=== PATIENT | female | born 1995 | race Caucasian/White ===

== ENCOUNTER 2017-01-13 20:46 | Emergency (ER) | payer OTHER ==
[~2017-01-13] VITALS: Ht 170.2 cm; Wt 99.0 kg
[~2017-01-13 20:46] MED LIST: LAMI25TA3 PO; LURA20TA PO; Z.0.BCPILL PO; ZOFR4TAB3 SL
[2017-01-13 20:48] VITALS: BP 139/76; PULSE 86; RESP 16; TEMP 97.9; O2SAT 99
[2017-01-13] MEDS ORDERED: PROM25TA10 PO (23:58)
[2017-01-13] MEDS ORDERED: ZITHTAB PO (23:58)
--- NOTE | 2017-01-13 23:58 | PD ---
HPI Chief Complaint: Cold / Flu Symptoms Time Seen by Provider: 23:46 Travel History International Travel<30 days: No Contact w/Intl Traveler<30days: No Traveled to known affect area: No History of Present Illness HPI 31-year-old female complains of sore throat, nasal congestion, dry cough, abdominal cramping, nausea vomiting diarrhea. Patient states the symptoms started today. Patient states that she is about 7 weeks' . Patient denies severe abdominal pain or vaginal bleeding. Patient denies any dysuria or frequency. Patient states that she has low-grade fever at home. PFSH Past Medical History ADHD: Yes Asthma: Yes (EXERCISE INDUCED) Bipolar Disorder: Yes Anxiety: Yes Diabetes: No Diminished Hearing: No Genitourinary: Yes (HERPES) Musculoskeletal: Yes (SKULL FX AND WRIST FX) Immunizations Current: Yes Seizures: Yes (FEBRILE SEIZURES INFANT) ?: LMP: 7-8 weeks ago : 0 Para: 0 Past Surgical History Cholecystectomy: Yes Ear Surgery: Yes (TUBES TODDLER- AGE 17 MONTHS) Neurologic Surgery: Yes (DEPRESSED SKULL FRACTURE AT AGE 1) Other Surgery: Yes (TUBES IN EARS AGE 17 MONTHS, SURG SKULL FX AGE 1, FX WRIST AGE 1) Social History Alcohol Use: Yes (occassionally ) Tobacco Use: No (never) Substance Use: No Allergies-Medications (Allergen,Severity, Reaction): Coded Allergies: Amoxicillin (Verified Allergy, Intermediate, HIVES, 01/13/17) Reported Meds & Prescriptions Reported Meds & Active Scripts Active No Active Prescriptions or Reported Medications Review of Systems General / Constitutional: No: Fever Eyes: No: Visual changes HENT: Positive: Sore Throat, No: Headaches Cardiovascular: No: Chest Pain or Discomfort Respiratory: Positive: Cough, No: Shortness of Breath Gastrointestinal: Positive: Nausea, Vomiting, Diarrhea, Abdominal Pain Genitourinary: No: Dysuria Musculoskeletal: No: Pain Skin: No Rash Neurologic: No: Weakness Psychiatric: No: Depression Endocrine: No: Polydipsia Hematologic/Lymphatic: No: Easy Bruising Physical Exam Narrative GENERAL: Well-nourished, well-developed patient. SKIN: Focused skin assessment warm/dry. HEAD: Normocephalic. EYES: No scleral icterus. No injection or drainage. TM: Clear. Throat: Mild erythematous. NECK: Supple, trachea midline. No JVD or lymphadenopathy. No meningismus CARDIOVASCULAR: Regular rate and rhythm without murmurs, gallops, or rubs. RESPIRATORY: Breath sounds equal bilaterally. No accessory muscle use. GASTROINTESTINAL: Abdomen soft, nondistended. Patient has mild diffuse tenderness over the upper abdomen. No rebound tenderness. No mass. MUSCULOSKELETAL: No cyanosis, or edema. BACK: Nontender without obvious deformity. No CVA tenderness. Data Data Last Documented VS Vital Signs Date Time Temp Pulse Resp B/P Pulse Ox O2 Delivery O2 Flow Rate FiO2 01/13/17 20:48 97.9 86 16 139/76 99 Room Air MDM Medical Decision Making Medical Screen Exam Complete: Yes Emergency Medical Condition: Yes Differential Diagnosis Differential diagnosis including viral syndrome, URI, pharyngitis, bronchitis, pneumonia, gastroenteritis, electrolyte abnormality. Narrative Course 21-year-old female with sore throat, congestion, coughing, fever, nausea vomiting diarrhea. Patient is 7 weeks . Diagnosis Primary Impression: Pharyngitis Qualified Code: J02.9 - Pharyngitis, unspecified etiology Additional Impression: Viral syndrome Patient Instructions: General Instructions Med/Other Pt SpecificInfo: Prescription(s) given Scripts Promethazine (Phenergan)25 Mg [id number] Mg PO Q6H PRN (NAUSEA OR VOMITING) #12 TAB Ref 0 Prov:Dougie Yuen MD 01/13/17 Azithromycin (Zithromax Z-Bucth)250 Mg [id number] Mg PO DIRECTED #1 DSPK 500 MG (2 tabs) day 1, then 1 tab days 2-5. Prov:Dougie Yuen MD 01/13/17 Disposition: 01 DISCHARGE HOME Condition: Stable Dougie Yuen MD Jan 13, 2017 23:58
== END 2017-01-14 00:50 | disposition home or self-care (01) ==
LOC: NEPC 20:46
DX: O99.511 Diseases of the respiratory system complicating pregnancy, first trimester (principal); J02.9 Acute pharyngitis, unspecified; O98.511 Other viral diseases complicating pregnancy, first trimester; B34.9 Viral infection, unspecified; Z3A.01 Less than 8 weeks gestation of pregnancy
CPT/HCPCS: 99284

== ENCOUNTER 2017-01-21 15:42 | Emergency (ER) | payer OTHER ==
[~2017-01-21] VITALS: Ht 162.6 cm; Wt 89.0 kg
[~2017-01-21 15:42] MED LIST changes: -LAMI25TA3 PO; -LURA20TA PO; +PROM25TA10 PO; -Z.0.BCPILL PO; +ZITHTAB PO; -ZOFR4TAB3 SL
[2017-01-21 15:43] VITALS: BP 118/74; PULSE 80; RESP 20; TEMP 98; O2SAT 97
--- NOTE | 2017-01-21 15:51 | PD ---
Physical Exam Date Seen by Provider: Jan 21, 2017 Time Seen by Provider: 15:50 Narrative 21 yo female here for abdominal pain. Vaginal bleeding. Going on for a few weeks but worsen today. History of high risk . No other medical complains. She is . Vitals are stable in triage. Awaiting Bed placement. Data Data Last Documented VS Vital Signs Date Time Temp Pulse Resp B/P Pulse Ox O2 Delivery O2 Flow Rate FiO2 01/21/17 15:43 98.0 80 20 118/74 97 Room Air [facility] Medical Record Reviewed: Yes Supervised Visit with MATA: Jay Satnos Jan 21, 2017 15:51
--- NOTE | 2017-01-21 18:12 | PD ---
HPI Chief Complaint: Related Problem Time Seen by Provider: 18:07 Travel History International Travel<30 days: No Contact w/Intl Traveler<30days: No Traveled to known affect area: No History of Present Illness HPI PATIENT HAS HAD 2 DAYS OF SUPRAPUBIC CRAMPY, NO VAGINAL BLEEDING, FREQUENCY AND DYSURIA, CRAMPING IS 4/10 AND WORSE AFTER VOIDING... NO ALLEVIATING FACTORS, AND NO OTHER ASSOCIATED FACTORS...OB IS [facility] Past Medical History ADHD: Yes Asthma: Yes (EXERCISE INDUCED) Bipolar Disorder: Yes Anxiety: Yes Diabetes: No Diminished Hearing: No Genitourinary: Yes (HERPES) Musculoskeletal: Yes (SKULL FX AND WRIST FX) Immunizations Current: Yes Seizures: Yes (FEBRILE SEIZURES INFANT) ?: LMP: 11/27/16 : 0 Para: 0 Past Surgical History Cholecystectomy: Yes Ear Surgery: Yes (TUBES TODDLER- AGE 17 MONTHS) Neurologic Surgery: Yes (DEPRESSED SKULL FRACTURE AT AGE 1) Other Surgery: Yes (TUBES IN EARS AGE 18 MONTHS, SURG SKULL FX AGE 1, FX WRIST AGE 1) Social History Alcohol Use: Yes (occassionally ) Tobacco Use: No (never) Substance Use: No Allergies-Medications (Allergen,Severity, Reaction): Coded Allergies: Amoxicillin (Verified Allergy, Intermediate, HIVES, 01/21/17) Reported Meds & Prescriptions Reported Meds & Active Scripts Active Zofran Odt (Ondansetron Odt) 4 Mg Tab 4 Mg SL Q6HR PRN Macrobid (Nitrofurantoin Monohydrate Macrocrystals) 100 Mg Capsule 100 Mg PO BID Phenergan (Promethazine HCl) 25 Mg Tablet 25 Mg PO Q6H PRN Zithromax Z-Butch (Azithromycin) 250 Mg Dspk 250 Mg PO DIRECTED 500 MG (2 tabs) day 1, then 1 tab days 2-5. Review of Systems Except as stated in HPI: all other systems reviewed are Neg Gastrointestinal: Positive: Abdominal Pain Genitourinary: Positive: Urgency, Frequency, Dysuria Physical Exam Narrative GENERAL: SKIN: Warm and dry. HEAD: Atraumatic. Normocephalic. EYES: Pupils equal and round. No scleral icterus. No injection or drainage. ENT: No nasal bleeding or discharge. Mucous membranes pink and moist. NECK: Trachea midline. No JVD. CARDIOVASCULAR: Regular rate and rhythm. RESPIRATORY: No accessory muscle use. Clear to auscultation. Breath sounds equal bilaterally. GASTROINTESTINAL: Abdomen soft, non-tender, nondistended. MUSCULOSKELETAL: Extremities without clubbing, cyanosis, or edema. No obvious deformities. NEUROLOGICAL: Awake and alert. No obvious cranial nerve deficits. Motor grossly within normal limits. Five out of 5 muscle strength in the arms and legs. Normal speech. PSYCHIATRIC: Appropriate mood and affect; insight and judgment normal. Data Data Last Documented VS Vital Signs Date Time Temp Pulse Resp B/P Pulse Ox O2 Delivery O2 Flow Rate FiO2 01/21/17 20:52 86 18 129/78 100 Room Air 01/21/17 15:43 98.0 Orders Urinalysis - C+S If Indicated (01/21/17 18:08) Ed Urine Pregnancytest Poc (01/21/17 18:08) Urine Culture (01/21/17 18:40) Nitrofurantoin Monohyd Macrocr (Macrobid (01/21/17 19:15) Labs Laboratory Tests Test 01/21/17 18:40 Urine Color YELLOW Urine Turbidity HAZY Urine pH 5.5 Urine Specific [place] 1.034 Urine Protein 30 mg/dL Urine Glucose (UA) NEG mg/dL Urine Ketones 40 mg/dL Urine Occult Blood NEG Urine Nitrite NEG Urine Bilirubin NEG Urine Urobilinogen LESS THAN 2.0 MG/DL Urine Leukocyte Esterase LARGE Urine RBC 53 /hpf Urine WBC 124 /hpf Urine Squamous Epithelial 3 /hpf Cells Urine Amorphous Sediment RARE Urine Bacteria RARE /hpf Urine Mucus FEW /lpf Microscopic Urinalysis Comment CULTURE INDICATED MDM Medical Decision Making Medical Screen Exam Complete: Yes Emergency Medical Condition: Yes Medical Record Reviewed: Yes Differential Diagnosis UTI V COLITIS V STERILE PYURIA Narrative Course PATIENT EVALUATION REVEALED UA C/W UTI, (INCIDENTALLY NO DIARRHEA OR OTHER SIGNS OF COLITIS NOTED ON EXAM/HISTORY). PATIENT WILL BE D/C WITH ABX Diagnosis Primary Impression: UTI Patient Instructions: General Instructions, Urinary Tract Infection in Women ( ED) Scripts Ondansetron Odt (Zofran Odt)4 Mg Tab4 Mg SL Q6HR PRN (Nausea/Vomiting) #12 TAB Prov:Balaji Son MD 01/21/17 Nitrofurantoin Monohydrate Macrocrystals (Macrobid)100 Mg [id number] Mg PO BID #14 CAP Prov:Balaji Son MD 01/21/17 Disposition: 01 DISCHARGE HOME Condition: Stable Balaji Son MD Jan 21, 2017 18:12
[2017-01-21 18:58] LABS: BACTERIA, URINE RARE /hpf; BLOOD, URINE NEG (NEG); COMMENT (UR) CULTURE INDICATED; CULTURE IF INDICATED CULTURE INDICATED; GLUCOSE,URINE NEG (NEG); KETONE, URINE 40 mg/dL (NEG); MUCUS URINE FEW /lpf (OCC); NITRITE,URINE NEG (NEG); PH, URINE 5.5 (5.0-8.5); SQUAMOUS EPITHELIAL CELL URINE 3 /hpf (0-5); URINE COLOR YELLOW (YELLW/STRAW)
[2017-01-21] MEDS ORDERED: NITROFURANTOIN MONOHYD MACROCR 100 MG CAP PO ONE (19:15)
[2017-01-21 20:52] VITALS: BP 129/78; PULSE 86; RESP 18; O2SAT 100
[2017-01-21] MEDS ORDERED: ZOFR4TAB3 SL (21:29)
[2017-01-21] MEDS ORDERED: MACR100C2 PO (21:29)
[2017-03-02] MEDS ORDERED: CLAR10CA3 PO (16:16)
[2017-04-02] MEDS ORDERED: MACR100C2 PO ×2 (11:18→11:32)
[2017-04-02] MEDS ORDERED: DIFL150T PO ×2 (11:18→11:32)
[2017-04-02] MEDS ORDERED: DOXY10TA PO ×2 (11:18→11:32)
[2017-04-02] MEDS ORDERED: INFL1INJ49 IM (11:22)
== END 2017-01-21 21:38 | disposition home or self-care (01) ==
LOC: NEPD 15:42
DX: O23.40 Unspecified infection of urinary tract in pregnancy, unspecified trimester (principal); N39.0 Urinary tract infection, site not specified; Z3A.00 Weeks of gestation of pregnancy not specified
CPT/HCPCS: 81001; 84703; 87086; 99284

== ENCOUNTER → 2017-03-05 | Outpatient (CLI) | payer OTHER ==
[~2017-03-05] MED LIST changes: +CLAR10CA3 PO; +DIFL150T PO; +DOXY10TA PO; +INFL1INJ49 IM; +MACR100C2 PO; -ZITHTAB PO
== END ==
LOC: HPND 07:58
PROVIDERS: ATTEND Family Medicine
DX: Z36 Encounter for antenatal screening of mother (principal)
CPT/HCPCS: 76801

== ENCOUNTER → 2017-04-09 | Outpatient (CLI) | payer OTHER ==
[~2017-04-09] MED LIST changes: -INFL1INJ49 IM; -PROM25TA10 PO
== END ==
LOC: HPND 12:28
PROVIDERS: ATTEND Family Medicine
DX: Z36.9 Encounter for antenatal screening, unspecified (principal)
CPT/HCPCS: 76805

== ENCOUNTER 2017-05-04 13:58 | Emergency (ER) | payer OTHER ==
[~2017-05-04] VITALS: Ht 162.6 cm; Wt 90.0 kg
[2017-05-04 14:01] VITALS: BP 118/69; PULSE 118; RESP 17; TEMP 98.9; O2SAT 100
[2017-05-04] MEDS ORDERED: SODIUM CHLOR 0.9% 1000 ML INJ 1,000 ML IV ONE (14:46)
--- NOTE | 2017-05-04 14:53 | PD ---
HPI Chief Complaint: Cardiac Complaint Time Seen by Provider: 14:22 Travel History International Travel<30 days: No Contact w/Intl Traveler<30days: No Traveled to known affect area: No History of Present Illness HPI 21-year-old female who is [address] weeks [address] Flora Breen as her OB. Patient presents with generalized weakness, feelings of tachycardia, and nausea. She is felt the baby moving frequently and denies any significant abdominal pain, fever, chills, or urinary symptoms. She was seen recently for this at [facility], and was hospitalized for several days and then discharged. Patient states he was home for several days and then started feeling this way again. She was told to come in by her OB. Patient is allergic to amoxicillin. [facility] Past Medical History ADHD: Yes Asthma: Yes (EXERCISE INDUCED) Bipolar Disorder: Yes Anxiety: Yes Cardiovascular Problems: Yes (TACHYCARDIA) Diabetes: No Diminished Hearing: No Genitourinary: Yes (HERPES) Musculoskeletal: Yes (SKULL FX AND WRIST FX) Immunizations Current: Yes Seizures: Yes (FEBRILE SEIZURES INFANT) Tetanus Vaccination: Unknown Influenza Vaccination: Yes ?: : 0 Para: 0 Past Surgical History Cholecystectomy: Yes Ear Surgery: Yes (TUBES TODDLER- AGE 18 MONTHS) Neurologic Surgery: Yes (DEPRESSED SKULL FRACTURE AT AGE 1) Other Surgery: Yes (TUBES IN EARS AGE 18 MONTHS, SURG SKULL FX AGE 1, FX WRIST AGE 1) Social History Alcohol Use: No Tobacco Use: No Substance Use: No Allergies-Medications (Allergen,Severity, Reaction): Coded Allergies: amoxicillin (Unverified Allergy, Intermediate, HIVES, 05/04/17) Reported Meds & Prescriptions Reported Meds & Active Scripts Active No Active Prescriptions or Reported Medications Review of Systems Except as stated in HPI: all other systems reviewed are Neg General / Constitutional: No: Fever Eyes: No: Visual changes HENT: No: Headaches Cardiovascular: No: Chest Pain or Discomfort Respiratory: No: Shortness of Breath Gastrointestinal: No: Abdominal Pain Genitourinary: No: Dysuria Musculoskeletal: No: Pain Skin: No Rash Neurologic: No: Weakness Psychiatric: No: Depression Endocrine: No: Polydipsia Hematologic/Lymphatic: No: Easy Bruising Physical Exam Narrative GENERAL: Patient appears in no obvious distress. SKIN: Warm and dry. Normal turgor. HEAD: Atraumatic. Normocephalic. EYES: Pupils equal and round. No scleral icterus. No injection or drainage. ENT: No nasal bleeding or discharge. Mucous membranes pink and moist. Pharynx is clear. Airway is patent. NECK: Trachea midline. Supple and nontender. CARDIOVASCULAR: Regular rate and rhythm. RESPIRATORY: No accessory muscle use. Clear to auscultation. Breath sounds equal bilaterally. GASTROINTESTINAL: Abdomen soft, non-tender, nondistended. Hepatic and splenic margins not palpable. MUSCULOSKELETAL: Extremities without clubbing, cyanosis, or edema. No obvious deformities. NEUROLOGICAL: Awake and alert. No obvious cranial nerve deficits. Motor grossly within normal limits. Five out of 5 muscle strength in the arms and legs. Normal speech. PSYCHIATRIC: Appropriate mood and affect; insight and judgment normal. Data Data Last Documented VS Vital Signs Date Time Temp Pulse Resp B/P (MAP) Pulse Ox O2 Delivery O2 Flow Rate FiO2 05/04/17 16:57 112 16 116/72 (87) 100 Room Air 05/04/17 14:01 98.9 Orders Orders Beta Hcg (Quant/Titer) (05/04/17 14:46) Complete Blood Count With Diff (05/04/17 14:46) Comprehensive Metabolic Panel (05/04/17 14:46) Urinalysis - C+S If Indicated (05/04/17 14:46) Iv Access Insert/Monitor (05/04/17 14:46) Ecg Monitoring (05/04/17 14:46) Heart Tones (05/04/17 14:46) Sodium Chloride 0.9% Flush (Ns Flush) (05/04/17 15:00) Sodium Chlor 0.9% 1000 Ml Inj (Ns 1000 M (05/04/17 14:46) Ondansetron Inj (Zofran Inj) (05/04/17 15:00) Electrocardiogram (05/04/17 ) Lipase (05/04/17 15:00) Monoscreen (05/04/17 16:38) Labs Laboratory Tests Test 05/04/17 15:00 05/04/17 16:45 White Blood Count 8.8 TH/MM3 Red Blood Count 4.07 MIL/MM3 Hemoglobin 11.5 GM/DL Hematocrit 34.0 % Mean Corpuscular Volume 83.5 FL Mean Corpuscular Hemoglobin 28.1 PG Mean Corpuscular Hemoglobin Concent 33.7 % Red Cell Distribution Width 13.7 % Platelet Count 146 TH/MM3 Mean Platelet Volume 9.3 FL Neutrophils (%) (Auto) 55.3 % Lymphocytes (%) (Auto) 34.6 % Monocytes (%) (Auto) 6.1 % Eosinophils (%) (Auto) 2.4 % Basophils (%) (Auto) 1.6 % Neutrophils # (Auto) 4.8 TH/MM3 Lymphocytes # (Auto) 3.0 TH/MM3 Monocytes # (Auto) 0.5 TH/MM3 Eosinophils # (Auto) 0.2 TH/MM3 Basophils # (Auto) 0.1 TH/MM3 CBC Comment DIFF FINAL Differential Comment Urine Color YELLOW Urine Turbidity CLEAR Urine pH 6.0 Urine Specific [place] 1.014 Urine Protein 30 mg/dL Urine Glucose (UA) NEG mg/dL Urine Ketones NEG mg/dL Urine Occult Blood NEG Urine Nitrite NEG Urine Bilirubin NEG Urine Urobilinogen LESS THAN 2.0 MG/DL Urine Leukocyte Esterase NEG Urine RBC 1 /hpf Urine WBC 3 /hpf Urine Squamous Epithelial Cells 5 /hpf Urine Bacteria RARE /hpf Urine Mucus FEW /lpf Blood Urea Nitrogen 7 MG/DL Creatinine 0.52 MG/DL Random Glucose 96 MG/DL Total Protein 6.3 GM/DL Albumin 2.3 GM/DL Calcium Level 8.2 MG/DL Alkaline Phosphatase 125 U/L Aspartate Amino Transf (AST/SGOT) 112 U/L Alanine Aminotransferase (ALT/SGPT) 147 U/L Total Bilirubin 0.3 MG/DL Sodium Level 135 MEQ/L Potassium Level 3.5 MEQ/L Chloride Level 105 MEQ/L Carbon Dioxide Level 20.6 MEQ/L Anion Gap 9 MEQ/L Estimat Glomerular Filtration Rate 147 ML/MIN Lipase 167 U/L Human Chorionic Gonadotropin, Quant [id number] MIU/ML Monoscreen NEG MDM Medical Decision Making Medical Screen Exam Complete: Yes Emergency Medical Condition: Yes Medical Record Reviewed: Yes Differential Diagnosis Electrolyte imbalance. Diabetes. Anemia. 22 weeks . Weakness. Narrative Course Patient is medically stable at time of exam. Labs ordered including CBC, CMP, urinalysis, serum hCG. IV access is obtained patient is given 1 L normal saline bolus. Patient also given 4 mg Zofran IV. EKG showed has tachycardia with short NC interval of 116 ms. CBC is unremarkable. Urinalysis shows 30 protein, otherwise negative. CMP shows sodium 135, potassium 3.5, chloride 105, carbon dioxide is 20.6. Calcium is 8.2. AST is 112, ALT is 147, alkaline phosphatase is 125. [place]ase [place] [id number]. Call was placed to the patient's high school foreign language tutor. Patient is further questioned regarding her previous illness, and she states she had a sore throat prior to admission at [facility]. Monospot was added to her labs. Monospot was negative. Patient discussed with Dr. Jenkins, the high school foreign language tutor business systems consultant, and labs and findings were reviewed. He felt the patient could be safely discharged home with instructions to push fluids and follow-up closely with her high school foreign language tutor later in the week. No need for antibiotics is noted at this time. Patient can return to emergency Department with worsening symptoms as needed. Diagnosis Primary Impression: Dehydration, mild Additional Impressions: Tachycardia, unspecified Referrals: Yuliana Breen MD R2 call for appointment Patient Instructions: Dehydration (ED), General Instructions Additional Instructions: Patient discussed with Dr. Jenkins, the high school foreign language tutor business systems consultant, and labs and findings were reviewed. He felt the patient could be safely discharged home with instructions to push fluids and follow-up closely with her high school foreign language tutor later in the week. No need for antibiotics is noted at this time. Patient can return to emergency Department with worsening symptoms as needed. Med/Other Pt SpecificInfo: No Meds Exist/No RX given Scripts No Active Prescriptions or Reported Meds Disposition: 01 DISCHARGE HOME Condition: Stable Marbin Jaramillo May 04, 2017 14:53
[2017-05-04] MEDS ORDERED: SODIUM CHLORIDE 0.9% FLUSH 10 ML FLUSH IVF PRN (15:00)
[2017-05-04] MEDS ORDERED: ONDANSETRON HCL 4 MG/2 ML VIAL IVP ONE (15:00)
[2017-05-04 15:34] LABS: AUTOMATED NEUTROPHIL # 4.8 TH/MM3 (1.8-7.7); BASOPHIL # 0.1 TH/MM3 (0-0.2); BASOPHIL % 1.6 % (0.0-2.0); EOSINOPHIL # 0.2 TH/MM3 (0-0.4); EOSINOPHIL % 2.4 % (0.0-4.0); HEMO FLAGS DIFF FINAL; LYMPH % 34.6 % (9.0-44.0); MEAN CELL VOLUME 83.5 FL (80.0-100.0); MEAN CORPUSCULAR HEMOGLOBIN 28.1 PG (27.0-34.0); MEAN CORPUSCULAR HGB CONC 33.7 % (32.0-36.0); MONO % 6.1 % (0.0-8.0); NEUT % 55.3 % (16.0-70.0); PLATELET COUNT 146 TH/MM3 (150-450); RED BLOOD COUNT 4.07 MIL/MM3 (4.00-5.30); RED CELL DISTRIBUTION WIDTH 13.7 % (11.6-17.2); WHITE BLOOD COUNT 8.8 TH/MM3 (4.0-11.0)
[2017-05-04 15:42] LABS: BACTERIA, URINE RARE /hpf; BLOOD, URINE NEG (NEG); GLUCOSE,URINE NEG (NEG); KETONE, URINE NEG (NEG); MUCUS URINE FEW /lpf (OCC); NITRITE,URINE NEG (NEG); SQUAMOUS EPITHELIAL CELL URINE 5 /hpf (0-5); URINE COLOR YELLOW (YELLW/STRAW)
[2017-05-04 15:43] LABS: CULTURE IF INDICATED CULT NOT INDICATED
[2017-05-04 16:15] LABS: ALKALINE PHOSPHATASE 125 U/L (45-117); ALT (GPT) 147 U/L (10-53); BETA HCG QUANT 12387 MIU/ML (0-5); TOTAL BILIRUBIN ADULT 0.3 MG/DL (0.2-1.0)
[2017-05-04 16:16] LABS: ANION GAP 9 MEQ/L (5-15); AST (GOT) 112 U/L (15-37); BICARBONATE 20.6 MEQ/L (21.0-32.0); BLOOD UREA NITROGEN 7 MG/DL (7-18); CHLORIDE 105 MEQ/L (98-107); GLOMERULAR FILTRATION RATE 147 ML/MIN (>89); POTASSIUM 3.5 MEQ/L (3.5-5.1); SODIUM (NA) 135 MEQ/L (136-145)
[2017-05-04 16:57] VITALS: BP 116/72; PULSE 112; RESP 16; O2SAT 100
--- NOTE | 2017-05-05 19:08 | EKG ---
Date Performed: 05/04/2017 Time Performed: 15:22:25 PTAGE: 21 years EKG: SINUS TACHYCARDIA WITH SHORT ND INTERVAL Since previous tracing, no significant change note d ABNORMAL RHYTHM ECG PREVIOUS TRACING : 09/11/2005 14.41 DOCTOR: Musa Kline Interpretating Date/Time 05/05/2017 19:08:05
== END 2017-05-04 19:51 | disposition home or self-care (01) ==
LOC: NEPD 13:58
DX: O26.892 Other specified pregnancy related conditions, second trimester (principal); E86.0 Dehydration; R00.0 Tachycardia, unspecified; R53.1 Weakness; R11.0 Nausea; R94.31 Abnormal electrocardiogram [ECG] [EKG]; Z3A.22 22 weeks gestation of pregnancy; Z34.92 Encounter for supervision of normal pregnancy, unspecified, second trimester
CPT/HCPCS: 80053; 81001; 83690; 84702; 85025; 86308; 93005; 96360; 99284; J7030

== ENCOUNTER → 2017-05-11 | Outpatient (CLI) | payer OTHER ==
[~2017-05-11] MED LIST changes: -CLAR10CA3 PO; -DIFL150T PO; -DOXY10TA PO; -MACR100C2 PO; +PRENATAL PO
== END ==
LOC: HPND 09:23
PROVIDERS: ATTEND Family Medicine
DX: O99.512 Diseases of the respiratory system complicating pregnancy, second trimester (principal)
CPT/HCPCS: 76816

== ENCOUNTER 2017-05-12 17:41 | Emergency (ER) | payer OTHER ==
[~2017-05-12] VITALS: Ht 162.6 cm; Wt 92.0 kg
[2017-05-12 17:43] VITALS: BP 127/71; PULSE 92; RESP 16; RESP 6; TEMP 98.8; O2SAT 100
[2017-05-12] MEDS ORDERED: PRENATAL PO (17:58)
[2017-05-12] MEDS ORDERED: SODIUM CHLORIDE 0.9% FLUSH 10 ML FLUSH IVF PRN (18:15)
--- NOTE | 2017-05-12 18:34 | PD ---
HPI Chief Complaint: Cardiac Complaint Time Seen by Provider: 17:57 Travel History International Travel<30 days: No Contact w/Intl Traveler<30days: No Traveled to known affect area: No History of Present Illness HPI 21-year-old 23 week gravid female with PMH of asthma presents to the ED for evaluation of a 3 week history of palpitations and tachycardia. On presentation the patient endorses chest pain that is present when lying on her left side and shortness of breath which she relates to her asthma. She denies fever, chills, nausea, vomiting, abdominal pain, vaginal bleeding, vaginal discharge. She states that her telephone maintainer, Dr. Flora Washington, told her that she should see a compilation clerk and wear a Holter monitor but she was never provided with a consult ordered. She saw a new primary care doctor today who noted the abnormal EKG and recommended that she come to the hospital for evaluation. She states that she was there to be evaluated for chronic itching. She endorses good movement, states that she saw the telephone maintainer last week and "everything was fine." PFSH Past Medical History ADHD: Yes Asthma: Yes (EXERCISE INDUCED) Bipolar Disorder: Yes Anxiety: Yes Cardiovascular Problems: Yes (TACHYCARDIA) Diabetes: No Diminished Hearing: No Genitourinary: Yes (HERPES) Musculoskeletal: Yes (SKULL FX AND WRIST FX) Respiratory: Yes (ASTHMA) Immunizations Current: Yes Seizures: Yes (FEBRILE SEIZURES ) Tetanus Vaccination: Unknown ?: : 0 Para: 0 Past Surgical History Cholecystectomy: Yes Ear Surgery: Yes (TUBES TODDLER- AGE 17 MONTHS) Neurologic Surgery: Yes (DEPRESSED SKULL FRACTURE AT AGE 1) Other Surgery: Yes (TUBES IN EARS AGE 18 MONTHS, SURG SKULL FX AGE 1, FX WRIST AGE 1) Social History Alcohol Use: No Tobacco Use: No Substance Use: No Allergies-Medications (Allergen,Severity, Reaction): Coded Allergies: amoxicillin (Unverified Allergy, Intermediate, HIVES, 05/12/17) Reported Meds & Prescriptions Reported Meds & Active Scripts Active Reported [ ] 1 Tab PO DAILY Review of Systems Except as stated in HPI: all other systems reviewed are Neg Physical Exam Narrative GENERAL: Well-nourished, well-developed anxious-appearing white female in no acute distress. SKIN: Focused skin assessment warm/dry. Multiple macules and papules. No evidence of contact dermatitis or excoriations noted. HEAD: Normocephalic. EYES: No scleral icterus. No injection or drainage. NECK: Supple, trachea midline. No JVD or lymphadenopathy. CARDIOVASCULAR: Irregular rate and rhythm without murmurs, gallops, or rubs. RESPIRATORY: Breath sounds clear and equal bilaterally. No accessory muscle use. GASTROINTESTINAL: Abdomen soft, non-tender, nondistended. Active bowel sounds. MUSCULOSKELETAL: No cyanosis, or edema. BACK: Nontender without obvious deformity. No CVA tenderness. Data Data Last Documented VS Vital Signs Date Time Temp Pulse Resp B/P (MAP) Pulse Ox O2 Delivery O2 Flow Rate FiO2 05/12/17 21:36 126 18 117/52 (73) 98 05/12/17 19:40 Room Air 05/12/17 17:43 98.8 Orders Orders Electrocardiogram (05/12/17 18:05) Ckmb (Isoenzyme) Profile (05/12/17 18:05) Complete Blood Count With Diff (05/12/17 18:05) Comprehensive Metabolic Panel (05/12/17 18:05) Magnesium (Mg) (05/12/17 18:05) Prothrombin Time / Inr (Pt) (05/12/17 18:05) Act Partial Throm Time (Ptt) (05/12/17 18:05) Troponin I (05/12/17 18:05) Ecg Monitoring (05/12/17 18:05) Bilateral Bp Monitoring (05/12/17 18:05) Iv Access Insert/Monitor (05/12/17 18:05) Oximetry (05/12/17 18:05) Sodium Chloride 0.9% Flush (Ns Flush) (05/12/17 18:15) Thyroid Stimulating Hormone (05/12/17 18:05) Potassium Chloride (Kcl) (05/12/17 20:30) Calcium Carbonate Chew (Tums Chew) (05/12/17 20:30) Ed Discharge Order (05/12/17 21:02) Labs Laboratory Tests Test 05/12/17 19:30 White Blood Count 11.8 TH/MM3 Red Blood Count 4.25 MIL/MM3 Hemoglobin 11.9 GM/DL Hematocrit 35.3 % Mean Corpuscular Volume 83.1 FL Mean Corpuscular Hemoglobin 28.0 PG Mean Corpuscular Hemoglobin Concent 33.7 % Red Cell Distribution Width 14.2 % Platelet Count 184 TH/MM3 Mean Platelet Volume 8.9 FL Neutrophils (%) (Auto) 38.6 % Lymphocytes (%) (Auto) 53.9 % Monocytes (%) (Auto) 6.0 % Eosinophils (%) (Auto) 1.1 % Basophils (%) (Auto) 0.4 % Neutrophils # (Auto) 4.5 TH/MM3 Lymphocytes # (Auto) 6.3 TH/MM3 Monocytes # (Auto) 0.7 TH/MM3 Eosinophils # (Auto) 0.1 TH/MM3 Basophils # (Auto) 0.0 TH/MM3 CBC Comment AUTO DIFF Differential Total Cells Counted 100 Neutrophils % (Manual) 45 % Band Neutrophils % 17 % Lymphocytes % 26 % Monocytes % 8 % Eosinophils % 3 % Neutrophils # (Manual) 7.4 TH/MM3 Metamyelocytes 1 % Differential Comment FINAL DIFF MANUAL Atypical Lymphocytes % Platelet Estimate NORMAL Platelet Morphology Comment NORMAL Prothrombin Time 10.5 SEC Prothromb Time International Ratio 1.0 RATIO Activated Partial Thromboplast Time 25.2 SEC Blood Urea Nitrogen 5 MG/DL Creatinine 0.67 MG/DL Random Glucose 68 MG/DL Total Protein 6.9 GM/DL Albumin 2.4 GM/DL Calcium Level 8.0 MG/DL Magnesium Level 1.4 MG/DL Alkaline Phosphatase 151 U/L Aspartate Amino Transf (AST/SGOT) 62 U/L Alanine Aminotransferase (ALT/SGPT) 71 U/L Total Bilirubin 0.5 MG/DL Sodium Level 136 MEQ/L Potassium Level 3.2 MEQ/L Chloride Level 103 MEQ/L Carbon Dioxide Level 21.8 MEQ/L Anion Gap 11 MEQ/L Estimat Glomerular Filtration Rate 110 ML/MIN Total Creatine Kinase 41 U/L Troponin I LESS THAN 0.02 NG/ML Thyroid Stimulating Hormone 3rd Gen 1.700 uIU/ML MDM Medical Decision Making Medical Screen Exam Complete: Yes Emergency Medical Condition: Yes Differential Diagnosis Arrhythmia versus dehydration versus electrolyte abnormality versus hyperthyroidism versus other Narrative Course 21-year-old 23 week gravid female with PMH of asthma presents to the ED for evaluation of a 3 week history of palpitations and tachycardia. On presentation the patient endorses chest pain that is present when lying on her left side and shortness of breath which she relates to her asthma. She states that her telephone maintainer, Dr. Flora Washington, told her that she should see a compilation clerk and wear a Holter monitor but she was never provided with a consult ordered. She saw a new primary care doctor today who noted the abnormal EKG and recommended that she come to the hospital for evaluation. She endorses good movement, states that she saw the telephone maintainer last week and "everything was fine." Vitals reviewed. Patient's tachycardic on presentation. O2 sats 100% on room air. Chest CTAB. Abdomen soft and nontender. EKG rate 120, sinus tach with PVCs. UT interval 116, QRS 95, QTc 385. Normal axis. No acute ST changes. Reviewed by Dr. Kline. Cardiac enzymes negative 1. CBC: WBC 11.8. Hemoglobin 11.9. INR 1.0. CMP: Potassium 3.2. BUN 5, creatinine 0.6. Calcium 8.0. LFTs elevated but improved from previous visit. TSH 1.7 We called the OB ED. They recommend recording heart tones but don't think she needs to be evaluated there. heart rate 155 on evaluation. I discussed the results of the workup with the patient. I explained to her the etiology of PVCs. She was provided a prescription for 24 Holter monitoring and a referral to the fire protection engineering technician compilation clerk, Dr. Christensen. She understands that she may need to be provided a referral from her telephone maintainer. We discussed reasons to return to the ED. She is stable and discharged home. Diagnosis Primary Impression: Tachycardia Additional Impression: Abnormal finding on EKG Referrals: Antione Christensen MD Patient Instructions: General Instructions, Tachycardia (ED) Additional Instructions: Rest, hydrate. Follow-up with the compilation clerk as discussed. You may need a referral from your telephone maintainer to follow up with cardiology. Return to the ED for any urgent or emergent medical condition. Disposition: 01 DISCHARGE HOME Condition: Stable Priti Plaza May 12, 2017 18:34
[2017-05-12 19:38] VITALS: BP 118/64; PULSE 127; RESP 20; O2SAT 100
[2017-05-12 19:40] VITALS: BP 115/60; PULSE 126; RESP 20; O2SAT 100
[2017-05-12 19:54] LABS: AUTOMATED NEUTROPHIL # 4.5 TH/MM3 (1.8-7.7); BASOPHIL % 0.4 % (0.0-2.0); EOSINOPHIL # 0.1 TH/MM3 (0-0.4); EOSINOPHIL % 1.1 % (0.0-4.0); HEMATOCRIT 35.3 % (35.0-46.0); LYMPH % 53.9 % (9.0-44.0); LYMPHOCYTE # 6.3 TH/MM3 (1.0-4.8); MEAN CELL VOLUME 83.1 FL (80.0-100.0); MEAN CORPUSCULAR HGB CONC 33.7 % (32.0-36.0); NEUT % 38.6 % (16.0-70.0); PLATELET COUNT 184 TH/MM3 (150-450); RED BLOOD COUNT 4.25 MIL/MM3 (4.00-5.30); RED CELL DISTRIBUTION WIDTH 14.2 % (11.6-17.2); WHITE BLOOD COUNT 11.8 TH/MM3 (4.0-11.0)
[2017-05-12 19:58] LABS: HEMO FLAGS AUTO DIFF
[2017-05-12 20:05] LABS: APTT (PATIENT) 25.2 SEC (24.3-30.1); PROTHROMBIN TIME - PATIENT 10.5 SEC (9.8-11.6)
[2017-05-12 20:10] LABS: ALT (GPT) 71 U/L (10-53); ANION GAP 11 MEQ/L (5-15); AST (GOT) 62 U/L (15-37); BICARBONATE 21.8 MEQ/L (21.0-32.0); BLOOD UREA NITROGEN 5 MG/DL (7-18); CHLORIDE 103 MEQ/L (98-107); GLOMERULAR FILTRATION RATE 110 ML/MIN (>89); MAGNESIUM 1.4 MG/DL (1.5-2.5); POTASSIUM 3.2 MEQ/L (3.5-5.1); SODIUM (NA) 136 MEQ/L (136-145)
[2017-05-12 20:14] LABS: ALKALINE PHOSPHATASE 151 U/L (45-117); TOTAL BILIRUBIN ADULT 0.5 MG/DL (0.2-1.0)
[2017-05-12 20:15] LABS: CREATINE KINASE 41 U/L (26-192)
[2017-05-12] MEDS ORDERED: CALCIUM CARBONATE 500 MG CHEWABLE TAB CHEW ONE (20:30)
[2017-05-12] MEDS ORDERED: POTASSIUM CHLORIDE 20 MEQ CONTROLLED RELEASE TAB PO ONE (20:30)
[2017-05-12 20:57] LABS: BANDS 17 % (0-6); EOSINOPHILS 3 % (0-4); METAMYELOCYTES 1 % (0-1); NEUTROPHIL # MANUAL DIFF 7.4 TH/MM3 (1.8-7.7); POLYS (SEG NEUTROPHILS) 45 % (16-70); WBC DIFF SAMPLE 100
[2017-05-12 20:58] LABS: PLATELET ESTIMATE SMEAR NORMAL (NORMAL); PLATELET MORPHOLOGY NORMAL (NORMAL); SCAN/DIFF FINAL DIFF MANUAL
[2017-05-12 21:36] VITALS: BP 117/52
--- NOTE | 2017-05-13 05:07 | EKG ---
Date Performed: 05/12/2017 Time Performed: 19:41:32 PTAGE: 21 years EKG: SINUS TACHYCARDIA WITH SHORT NV INTERVAL WITH FREQUENT VENTRICULAR PREMATURE COMPLEXES ABNO RMAL RHYTHM ECG Compared to prior electrocardiogram, Premature ventricular contractions are now prese nt . PREVIOUS TRACING : 05/04/2017 15.22 DOCTOR: Ovi Gómez Interpretating Date/Time 05/13/2017 05:06:30
== END 2017-05-12 21:37 | disposition home or self-care (01) ==
LOC: NEPC 17:41
DX: O26.892 Other specified pregnancy related conditions, second trimester (principal); R00.0 Tachycardia, unspecified; R94.31 Abnormal electrocardiogram [ECG] [EKG]; Z3A.23 23 weeks gestation of pregnancy
CPT/HCPCS: 80053; 82550; 83735; 84443; 84484; 85007; 85027; 85610; 85730; 93005; 99284

== ENCOUNTER 2017-07-12 20:01 | Emergency (ER) | payer OTHER ==
--- NOTE | 2017-07-12 20:48 | PD ---
HPI Chief Complaint Abdominal pain back pain on the right Date Seen: Jul 12, 2017 Time Seen: 20:44 Travel History International Travel<30 Days: No Contact w/Intl Traveler<30Days: No Known Affected Area: No History of Present Illness HPI Database Management Specialist 21-year-old white female at 32 weeks his family practice patient presents complaining of lower abdominal pain and suprapubic pain and low right back pain but no bleeding or leakage of fluid, heart rate tracing is reactive and there are no contractions. Weeks Gestation: 32 Para: 0 : 1 History Social History Alcohol Use: No Tobacco Use: No Substance Abuse: No Allergies-Medications (Allergen,Severity, Reaction): Coded Allergies: amoxicillin (Unverified Allergy, Intermediate, HIVES, 06/04/17) Home Meds Reported Medications [ ] No Conflict Check, 1 TAB PO DAILY 05/12/17 Review of Systems General / Constitutional: No: Fever, Weight Gain, Chills, Other Eyes: No: Diploplia, Blurred Vision, Visual changes, Pain, Photophobia HENT: No: Headaches, Vertigo, Lightheadedness Cardiovascular: No: Irregular Rhythm, Chest Pain or Discomfort, Palpitations, Tachycardia, Syncope, Varicosities, Edema, Cyanosis Respiratory: No: Cough, Short of Breath, Other Gastrointestinal: Abdominal Pain, No: Nausea, Vomiting, Diarrhea Genitourinary: No: Decreased Urinary Output, Oliguria Musculoskeletal: No: Limited ROM, Weakness, Cramping, Edema, Pain Skin: No Rash, No Itching, No Dryness, No Lumps, No Change in Pigmentation, No Change in Nails, No Alopecia, No Lesions Neurologic: No: Weakness, Dizziness, Syncope, Focal Abnormalities, Coordination Problem, Headache, Slurred Speech, Seizures Psychiatric: No: Depression, Suicidal Ideations, Homicidal Ideation Endocrine: No: Heat Intolerance, Cold Intolerance, Polydipsia, Polyuria, Other Physical Exam Narrative GENERAL: Well-nourished, well-developed patient. SKIN: Warm and dry. HEAD: Normocephalic and atraumatic. EYES: No scleral icterus. No injection or drainage. ENT: No nasal drainage noted. Mucous membranes pink. Airway patent. NECK: Supple, trachea midline. No JVD. CARDIOVASCULAR: Regular rate and rhythm without murmurs, gallops, or rubs. RESPIRATORY: Breath sounds equal bilaterally. No accessory muscle use. BREASTS: Bilateral exam showed no masses , no retractions, no nipple discharge. ABDOMEN/GI: Abdomen soft, non-tender, bowel sounds present, no rebound, no guarding Gravid to [32-] weeks size Fundal Height: [-32] GENITOURINARY: External Genitalia: intact and normal in appearance BUS glands: [-] Cervix: [-post] Dilatation: [closed-] Effacement: [thick-] Station: [-3] Membranes: [intact ] Uterine Contractions: [no reg -] FHT's: Category: [1-] Baseline: [-133] Reactive: [-R] Variability: [mod-] Decels: [-none] EXTREMITIES: No cyanosis or edema. BACK: Nontender without obvious deformity. No CVA tenderness. NEUROLOGICAL: Awake and alert. Motor and sensory grossly within normal limits. Five out of 5 muscle strength in all muscle groups. Normal speech. Data Data Labs Urine dip on OB ED is negative MDM Interpretation(s) Patient is 21-year-old white female at 32 weeks presents planning of lower abdominal pain suprapubically pains for a day with some right sided low back pain. Thank for this. She denies bleeding or leakage of fluid. heart tracing is reactive and she is not john. Cervix closed thick and posterior. Urine dip on OB ED is negative. The seems to be more soft tissue muscle strain and pain type the event Plan Plan for patient to take Tylenol 2 every 4 hours for pain drink plenty of fluids for hydration, heating pad or hot bath perceptibly. Stay in bed for 1-2 days. Follow-up with her OB provider the family practice physicians Diagnosis Diagnosis: Primary Impression: Pain of round ligament during Disposition: 01 DISCHARGE HOME Condition: Stable Mo Jenkins II, MD Jul 12, 2017 20:48
== END 2017-07-12 20:45 | disposition home or self-care (01) ==
LOC: HOBED 20:01
DX: O26.893 Other specified pregnancy related conditions, third trimester (principal); R10.2 Pelvic and perineal pain; Z3A.32 32 weeks gestation of pregnancy
CPT/HCPCS: 59025

== ENCOUNTER 2017-07-19 13:56 | Emergency (ER) | payer OTHER ==
[~2017-07-19] VITALS: Ht 162.6 cm; Wt 94.0 kg
[2017-07-19 14:01] VITALS: BP 140/78; PULSE 131; RESP 18; TEMP 98; O2SAT 97
[2017-07-19 15:20] VITALS: PULSE 123; RESP 22; O2SAT 96
[2017-07-19] MEDS ORDERED: ALBUAER3 INH (15:24)
[2017-07-19] MEDS ORDERED: predniSONE 20 MG TAB PO SCH (15:45)
--- NOTE | 2017-07-19 15:49 | PD ---
HPI Chief Complaint: Respiratory Symptoms Time Seen by Provider: 15:22 Travel History International Travel<30 days: No Contact w/Intl Traveler<30days: No Traveled to known affect area: No History of Present Illness HPI 21-year-old 33 week female with PMH of asthma presents to the ED for evaluation of 3 day history of sinus congestion, clear rhinorrhea, sore throat, nonproductive cough, shortness of breath. She endorses wheezing. She denies fever, chills, nausea, vomiting. She did receive this years flu vaccine. Unsure of any sick contacts. States baby is active and kicking. Treated at home with a rescue inhaler with no improvement of symptoms. PFSH Past Medical History ADHD: Yes Asthma: Yes Bipolar Disorder: Yes Anxiety: Yes Cardiovascular Problems: Yes (TACHYCARDIAC, PVCS) Diabetes: No Diminished Hearing: No Genitourinary: Yes (HERPES) Musculoskeletal: Yes (SKULL FX AND WRIST FX) Respiratory: Yes (ASTHMA ) Immunizations Current: Yes Seizures: Yes (FEBRILE SEIZURES INFANT) ?: LMP: 33 WEEKS PREG : 0 Para: 0 Past Surgical History Cholecystectomy: Yes Ear Surgery: Yes (TUBES TODDLER- AGE 18 MONTHS) Neurologic Surgery: Yes (DEPRESSED SKULL FRACTURE AT AGE 1) Tympanostomy Tube: Yes Other Surgery: Yes (TUBES IN EARS AGE 18 MONTHS, SURG SKULL FX AGE 1, FX WRIST AGE 1) Social History Alcohol Use: No Tobacco Use: No Substance Use: No Allergies-Medications (Allergen,Severity, Reaction): Coded Allergies: amoxicillin (Verified Allergy, Intermediate, HIVES, 07/19/17) Reported Meds & Prescriptions Reported Meds & Active Scripts Active Prednisone 20 Mg Tab 20 Mg PO DAILY 5 Days Nebulizer Kit/Tubing/Mout (N/A) 1 Kit Kit Kit .XX DIRECTED Albuterol Neb (Albuterol Sulfate) 2.5 Mg/3 Ml Neb 2.5 Mg NEB Q6HR PRN Macrobid (Nitrofurantoin Monoh/Nitrofur Macro) 100 Mg Cap 100 Mg PO BID 7 Days Reported Proair Hfa 8.5 GM Inh (Albuterol Sulfate) 90 Mcg/Act Aer 2 Puff INH Q4-6H PRN 108 mcg/actuation [ ] 1 Tab PO DAILY Review of Systems Except as stated in HPI: all other systems reviewed are Neg Physical Exam Narrative GENERAL: Well-nourished, well-developed white female in no acute distress. SKIN: Warm and dry. HEAD: Normocephalic. Atraumatic. EYES: No scleral icterus. No injection or drainage. PERRLA. EOMI. ENT: Pearly cedeno tympanic membranes bilaterally. Bilateral serous effusions. Nasal mucosa is moist. Oropharynx without erythema, edema or exudate. NECK: Supple, trachea midline. Tender anterior cervical lymphadenopathy. CARDIOVASCULAR: Regular rate and rhythm without murmurs, gallops, or rubs. RESPIRATORY: Breath sounds equal bilaterally. Diffuse expiratory wheezing bilaterally. No accessory muscle use. GASTROINTESTINAL: Abdomen soft, gravid, non-tender, nondistended. + Bowel sounds MUSCULOSKELETAL: No cyanosis, or edema. BACK: Nontender without obvious deformity. No CVA tenderness. Data Data Last Documented VS Vital Signs Date Time Temp Pulse Resp B/P (MAP) Pulse Ox O2 Delivery O2 Flow Rate FiO2 07/19/17 17:18 129 20 100 07/19/17 16:14 Room Air 07/19/17 14:01 98.0 Orders Orders Albuterol Neb (Albuterol Neb) (07/19/17 15:45) Prednisone (Deltasone) (07/19/17 15:45) Iv Access Insert/Monitor (07/19/17 15:49) Sodium Chlor 0.9% 1000 Ml Inj (Ns 1000 M (07/19/17 16:00) Complete Blood Count With Diff (07/19/17 15:49) Comprehensive Metabolic Panel (07/19/17 15:49) Urinalysis - C+S If Indicated (07/19/17 15:49) Ecg Monitoring (07/19/17 15:49) Oximetry (07/19/17 15:49) Ed Discharge Order (07/19/17 16:56) Labs Laboratory Tests Test 07/19/17 16:00 White Blood Count 16.2 TH/MM3 Red Blood Count 4.40 MIL/MM3 Hemoglobin 12.5 GM/DL Hematocrit 37.1 % Mean Corpuscular Volume 84.4 FL Mean Corpuscular Hemoglobin 28.5 PG Mean Corpuscular Hemoglobin Concent 33.8 % Red Cell Distribution Width 14.6 % Platelet Count 217 TH/MM3 Mean Platelet Volume 8.9 FL Neutrophils (%) (Auto) 55.4 % Lymphocytes (%) (Auto) 26.8 % Monocytes (%) (Auto) 8.9 % Eosinophils (%) (Auto) 8.6 % Basophils (%) (Auto) 0.3 % Neutrophils # (Auto) 9.0 TH/MM3 Lymphocytes # (Auto) 4.3 TH/MM3 Monocytes # (Auto) 1.4 TH/MM3 Eosinophils # (Auto) 1.4 TH/MM3 Basophils # (Auto) 0.0 TH/MM3 CBC Comment DIFF FINAL Differential Comment Urine Color YELLOW Urine Turbidity HAZY Urine pH 6.0 Urine Specific [place] 1.021 Urine Protein 30 mg/dL Urine Glucose (UA) NEG mg/dL Urine Ketones NEG mg/dL Urine Occult Blood NEG Urine Nitrite NEG Urine Bilirubin NEG Urine Urobilinogen LESS THAN 2.0 MG/DL Urine Leukocyte Esterase LARGE Urine RBC 2 /hpf Urine WBC 2 /hpf Urine Squamous Epithelial Cells 5 /hpf Urine Calcium Oxalate Crystals MOD /hpf Urine Bacteria RARE /hpf Urine Mucus FEW /lpf Microscopic Urinalysis Comment CULT NOT INDICATED Blood Urea Nitrogen 5 MG/DL Creatinine 0.52 MG/DL Random Glucose 77 MG/DL Total Protein 7.6 GM/DL Albumin 2.9 GM/DL Calcium Level 8.8 MG/DL Alkaline Phosphatase 177 U/L Aspartate Amino Transf (AST/SGOT) 19 U/L Alanine Aminotransferase (ALT/SGPT) 30 U/L Total Bilirubin 0.2 MG/DL Sodium Level 137 MEQ/L Potassium Level 4.0 MEQ/L Chloride Level 105 MEQ/L Carbon Dioxide Level 23.4 MEQ/L Anion Gap 9 MEQ/L Estimat Glomerular Filtration Rate 147 ML/MIN [facility] Medical Decision Making Medical Screen Exam Complete: Yes Emergency Medical Condition: Yes Differential Diagnosis Viral syndrome versus asthma exacerbation versus less likely pneumonia versus other Narrative Course 21-year-old 33 week female with PMH of asthma presents to the ED for evaluation of 3 day history of sinus congestion, clear rhinorrhea, sore throat, nonproductive cough, shortness of breath. She endorses wheezing. She denies fever, chills, nausea, vomiting. States baby is active and kicking. Vitals reviewed. Patient tachycardic on presentation. This improves in the exam. Patient endorses history of tachycardia with PVCs. States her normal heart rate is right around 100. ENT exam is unremarkable. Patient does have very diffuse wheezing in the bilateral lung seaman. She was administered by mouth steroids and DuoNeb 3 and 1 L normal saline. CBC: WBC 16.2. CMP: Unremarkable. UA: Hazy, large leukocyte esterase, rare bacteria. No culture indicated. On recheck she reports improvement of her breathing symptoms. She denies any urinary symptoms. She is prescribed a short course of prednisone, albuterol nebulizing treatments, Macrobid 100 mg twice a day 7 days. She has follow-up with her supervisor litharge on 07/22. She is instructed to return to the ED should her symptoms worsen in the interim. She indicated understanding of the instructions and is agreeable to the care plan. She is stable and discharged home. Diagnosis Primary Impression: Viral syndrome Additional Impressions: Asthma exacerbation Qualified Codes: J45.901 - Unspecified asthma with (acute) exacerbation Asymptomatic bacteriuria during in third trimester Referrals: Expenditure Requisition Clerk Patient Instructions: Asthma (ED), General Instructions, Viral Syndrome (ED) Additional Instructions: Rest, hydrate. Take every dose of antibiotic until all gone. Use nebulizing treatments every 6 hours as needed for shortness of breath. 20 mg prednisone for the next 5 days as prescribed. Follow-up with your supervisor litharge this week as planned. Return to the ED for any urgent or emergent medical condition. Med/Other Pt SpecificInfo: Prescription(s) given Scripts Prednisone (Prednisone) 20 Mg Tab 20 MG PO DAILY for 5 Days, #5 TAB 0 Refills Prov: Adrián Meyers MD 07/19/17 Nebulizer Kit/Tubing/Mout (Nebulizer Kit/Tubing/Mout) 1 Kit Kit KIT .XX DIRECTED for Breathing Treatment, #1 0 Refills Prov: Adrián Meyers MD 07/19/17 Albuterol Neb (Albuterol Neb) 2.5 Mg/3 Ml Neb 2.5 MG NEB Q6HR Y for SHORTNESS OF BREATH, #60 NEBULE 0 Refills Prov: Adrián Meyers MD 07/19/17 Nitrofurantoin Monohydrate Macrocrystals (Macrobid) 100 Mg Cap 100 MG PO BID for Infection for 7 Days, #14 CAP 0 Refills Prov: Adrián Meyers MD 07/19/17 Disposition: 01 DISCHARGE HOME Condition: Stable Priti Plaza Jul 19, 2017 15:49
[2017-07-19] MEDS ORDERED: SODIUM CHLOR 0.9% 1000 ML INJ 1,000 ML IV ONE (16:00)
[2017-07-19 16:14] VITALS: O2SAT 98
[2017-07-19 16:23] LABS: BASOPHIL % 0.3 % (0.0-2.0); EOSINOPHIL # 1.4 TH/MM3 (0-0.4); EOSINOPHIL % 8.6 % (0.0-4.0); HEMATOCRIT 37.1 % (35.0-46.0); HEMOGLOBIN 12.5 GM/DL (11.6-15.3); LYMPH % 26.8 % (9.0-44.0); LYMPHOCYTE # 4.3 TH/MM3 (1.0-4.8); MEAN CELL VOLUME 84.4 FL (80.0-100.0); MEAN CORPUSCULAR HEMOGLOBIN 28.5 PG (27.0-34.0); MEAN CORPUSCULAR HGB CONC 33.8 % (32.0-36.0); MEAN PLATELET VOLUME 8.9 FL (7.0-11.0); MONO % 8.9 % (0.0-8.0); MONOCYTE # 1.4 TH/MM3 (0-0.9); NEUT % 55.4 % (16.0-70.0); PLATELET COUNT 217 TH/MM3 (150-450); RED CELL DISTRIBUTION WIDTH 14.6 % (11.6-17.2); WHITE BLOOD COUNT 16.2 TH/MM3 (4.0-11.0)
[2017-07-19] MEDS: RESP: ALBUTEROL 2.5 MG/3 ML NEB (SCH) INH (16:23)
[2017-07-19 16:38] LABS: ALBUMIN 2.9 GM/DL (3.4-5.0); ALT (GPT) 30 U/L (10-53); AST (GOT) 19 U/L (15-37); BICARBONATE 23.4 MEQ/L (21.0-32.0); BLOOD UREA NITROGEN 5 MG/DL (7-18); CALCIUM 8.8 MG/DL (8.5-10.1); CHLORIDE 105 MEQ/L (98-107); CREATININE 0.52 MG/DL (0.50-1.00); GLOMERULAR FILTRATION RATE 147 ML/MIN (>89); GLUCOSE,RANDOM 77 MG/DL (74-106); SODIUM (NA) 137 MEQ/L (136-145)
[2017-07-19 16:39] LABS: BACTERIA, URINE RARE /hpf; BILIRUBIN, URINE NEG (NEG); BLOOD, URINE NEG (NEG); CALCIUM OXALATE CRYSTALS,URINE MOD /hpf; GLUCOSE,URINE NEG (NEG); KETONE, URINE NEG (NEG); MUCUS URINE FEW /lpf (OCC); NITRITE,URINE NEG (NEG); SQUAMOUS EPITHELIAL CELL URINE 5 /hpf (0-5); URINE COLOR YELLOW (YELLW/STRAW); URINE LEUKOCYTE ESTERASE LARGE (NEG)
[2017-07-19 16:40] VITALS: PULSE 111; RESP 24; O2SAT 99
[2017-07-19 16:40] LABS: ALKALINE PHOSPHATASE 177 U/L (45-117); TOTAL BILIRUBIN ADULT 0.2 MG/DL (0.2-1.0); TOTAL PROTEIN 7.6 GM/DL (6.4-8.2)
[2017-07-19] MEDS ORDERED: ALBU0.08 NEB (16:51)
[2017-07-19] MEDS ORDERED: MACR100C2 PO (16:51)
[2017-07-19] MEDS ORDERED: PRED20 PO (16:51)
[2017-07-19] MEDS ORDERED: NEBUKIT5 (16:51)
== END 2017-07-19 17:19 | disposition home or self-care (01) ==
LOC: NEPA 13:56
DX: O99.513 Diseases of the respiratory system complicating pregnancy, third trimester (principal); B34.9 Viral infection, unspecified; J45.901 Unspecified asthma with (acute) exacerbation; R82.71 Bacteriuria; R00.0 Tachycardia, unspecified; I49.3 Ventricular premature depolarization; O99.343 Other mental disorders complicating pregnancy, third trimester; F31.9 Bipolar disorder, unspecified; Z3A.33 33 weeks gestation of pregnancy
CPT/HCPCS: 80053; 81001; 85025; 94640; 94664; 99285; J7030; J7512; J7613

== ENCOUNTER 2017-09-01 14:02 | Emergency (ER) | payer OTHER ==
[~2017-09-01 14:02] MED LIST changes: +ALBU0.08 NEB; +ALBUAER3 INH; +MACR100C2 PO; +NEBUKIT5; +PRED20 PO
--- NOTE | 2017-09-01 15:06 | PD ---
HPI Chief Complaint Contractions and leaking Date Seen: Sep 01, 2017 Travel History International Travel<30 Days: No Contact w/Intl Traveler<30Days: No Known Affected Area: No History of Present Illness HPI Patient is a 21-year-old at 39/3 weeks gestation that presents to the [facility] ED with a chief complaint of contractions that began in the last 4 days. The contractions feel like type cramps that are intermittent. She also complains of having vaginal pressure all the time. The contractions have been progressively worsening. She has also had some blurry vision and spots in her vision. She has chronic shortness of breath from asthma which has worsened during this . Patient also states that in the past 4 days she has been leaking light green, thick discharge. [place] [facility] [place] Breen. Notably, she is GBS positive. Weeks Gestation: 39 Para: 0 : 1 Allergies-Medications (Allergen,Severity, Reaction): Coded Allergies: amoxicillin (Verified Allergy, Intermediate, HIVES, 07/19/17) Home Meds Active Scripts Prednisone (Prednisone) 20 Mg Tab, 20 MG PO DAILY for 5 Days, #5 TAB 0 Refills Prov:Adrián Meyers MD 07/19/17 Nebulizer Kit/Tubing/Mout (Nebulizer Kit/Tubing/Mout) 1 Kit Kit, KIT .XX DIRECTED for Breathing Treatment, #1 0 Refills Prov:Adrián Meyers MD 07/19/17 Albuterol Neb (Albuterol Neb) 2.5 Mg/3 Ml Neb, 2.5 MG NEB Q6HR Y for SHORTNESS OF BREATH, #60 NEBULE 0 Refills Prov:Adrián Meyers MD 07/19/17 Nitrofurantoin Monohydrate Macrocrystals (Macrobid) 100 Mg Cap, 100 MG PO BID for Infection for 7 Days, #14 CAP 0 Refills Prov:dArián Meyers MD 07/19/17 Reported Medications Albuterol 8.5 GM Inh (Proair Hfa 8.5 GM Inh) 90 Mcg/Act Aer, 2 PUFF INH Q4-6H Y for SHORTNESS OF BREATH, #1 INHALER 0 Refills 108 mcg/actuation 07/19/17 [ ] No Conflict Check, 1 TAB PO DAILY 05/12/17 Physical Exam Narrative GENERAL: Well-nourished, well-developed patient. SKIN: Warm and dry. HEAD: Normocephalic and atraumatic. EYES: No scleral icterus. No injection or drainage. ENT: No nasal drainage noted. Mucous membranes pink. Airway patent. NECK: Supple, trachea midline. No JVD. CARDIOVASCULAR: Regular rate and rhythm without murmurs, gallops, or rubs. RESPIRATORY: Breath sounds equal bilaterally. No accessory muscle use. Diffuse wheezing in bilateral airfields ABDOMEN/GI: Abdomen soft, non-tender, bowel sounds present, no rebound, no guarding Gravid to 39 weeks size GENITOURINARY: External Genitalia: intact and normal in appearance Cervix: Posterior Dilatation: 1-2cm Effacement: 50 Station: -3 Presentation: [cephalic Membranes: intact Uterine Contractions: present q4-6 mins FHT's: Category: I Baseline: 140 Reactive: accels present Variability: Moderate Decels: None EXTREMITIES: No cyanosis or edema. BACK: Nontender without obvious deformity. No CVA tenderness. NEUROLOGICAL: Awake and alert. Motor and sensory grossly within normal limits. Five out of 5 muscle strength in all muscle groups. Normal speech. Data Data Vital Signs Reviewed: Yes Group B Strep: Positive MDM Medical Record Reviewed: Yes Interpretation(s) 21 y/o presents with uterine contractions but not in active labor Plan IUP -FHT Category I, reassuring -Continue routine care -Amnisure negative - not ruptured -Wet prep profile negative -UA not indicative of infection -After walking the hallways for 1 hour, vaginal exam was repeated and was 2/50/- 3 -Plan to dc home -Labor precautions, Return to the ED if water breaks or contractions are strong , regular, and less than 10 mins apart Discuss[address] with Dr. Sweet Diagnosis Diagnosis: Primary Impression: Uterine contractions during Disposition: 01 DISCHARGE HOME Condition: Stable Eko,Letty OLIVEIRA Sep 01, 2017 15:06
[2017-09-01 16:14] LABS: BACTERIA, URINE RARE /hpf; BILIRUBIN, URINE NEG (NEG); BLOOD, URINE NEG (NEG); GLUCOSE,URINE NEG (NEG); KETONE, URINE NEG (NEG); MUCUS URINE FEW /lpf (OCC); NITRITE,URINE NEG (NEG); SQUAMOUS EPITHELIAL CELL URINE 5 /hpf (0-5); URINE COLOR YELLOW (YELLW/STRAW); URINE LEUKOCYTE ESTERASE LARGE (NEG)
== END 2017-09-01 17:10 | disposition home or self-care (01) ==
LOC: HOBED 14:02
DX: O47.1 False labor at or after 37 completed weeks of gestation (principal); Z3A.39 39 weeks gestation of pregnancy
CPT/HCPCS: 59025; 81001; 84112; 87210

== ENCOUNTER 2017-09-02 15:41 | Emergency (ER) | payer OTHER ==
--- NOTE | 2017-09-02 16:13 | PD ---
History of Present Illness Date Seen: Sep 02, 2017 History of Present Illness Chief Complaint Contractions and leaking Date Seen: Sep 01, 2017 Travel History International Travel<30 Days: No Contact w/Intl Traveler<30Days: No Known Affected Area: No History of Present Illness HPI Patient is a 21-year-old at 39/4 weeks gestation that presents to the [facility] ED with a chief complaint of leaking that began 30 minutes ago after she had sexual intercourse. She was last seen in the ED yesterday for contractions and leaking, amnisure was negative and she was not in active labor although she was having contractions. Patient gets her care at the [facility] with Dr. Yuliana Breen. Notably, she is GBS positive. Weeks Gestation: 39 Para: 0 : 1 Allergies-Medications (Allergen,Severity, Reaction): Coded Allergies: amoxicillin (Verified Allergy, Intermediate, HIVES, 07/19/17) Home Meds Active Scripts Prednisone (Prednisone) 20 Mg Tab, 20 MG PO DAILY for 5 Days, #5 TAB 0 Refills Prov:Adrián Meyers MD 07/19/17 Nebulizer Kit/Tubing/Mout (Nebulizer Kit/Tubing/Mout) 1 Kit Kit, KIT .XX DIRECTED for Breathing Treatment, #1 0 Refills Prov:Adrián Meyers MD 07/19/17 Albuterol Neb (Albuterol Neb) 2.5 Mg/3 Ml Neb, 2.5 MG NEB Q6HR Y for SHORTNESS OF BREATH, #60 NEBULE 0 Refills Prov:Adrián Meyers MD 07/19/17 Nitrofurantoin Monohydrate Macrocrystals (Macrobid) 100 Mg Cap, 100 MG PO BID for Infection for 7 Days, #14 CAP 0 Refills Prov:Adrián Meyers MD 07/19/17 Reported Medications Albuterol 8.5 GM Inh (Proair Hfa 8.5 GM Inh) 90 Mcg/Act Aer, 2 PUFF INH Q4-6H Y for SHORTNESS OF BREATH, #1 INHALER 0 Refills 108 mcg/actuation 07/19/17 [ ] No Conflict Check, 1 TAB PO DAILY 05/12/17 Physical Exam Narrative GENERAL: Well-nourished, well-developed patient. SKIN: Warm and dry. HEAD: Normocephalic and atraumatic. EYES: No scleral icterus. No injection or drainage. ENT: No nasal drainage noted. Mucous membranes pink. Airway patent. NECK: Supple, trachea midline. No JVD. CARDIOVASCULAR: Regular rate and rhythm without murmurs, gallops, or rubs. RESPIRATORY: Breath sounds equal bilaterally. No accessory muscle use. Diffuse wheezing in bilateral airfields ABDOMEN/GI: Abdomen soft, non-tender, bowel sounds present, no rebound, no guarding Gravid to 39 weeks size GENITOURINARY: External Genitalia: intact and normal in appearance Cervix: Posterior Dilatation: 1-2cm Effacement: 50% Station: -3 Presentation: cephalic Membranes: intact Uterine Contractions: present q4-6 mins FHT's: Category: I Baseline: 145 Reactive: accels present Variability: Moderate Decels: None EXTREMITIES: No cyanosis or edema. BACK: Nontender without obvious deformity. No CVA tenderness. NEUROLOGICAL: Awake and alert. Motor and sensory grossly within normal limits. Five out of 5 muscle strength in all muscle groups. Normal speech. Data Data Vital Signs Reviewed: Yes Group B Strep: Positive MDM Medical Record Reviewed: Yes Interpretation(s) 21 y/o presents with uterine contractions but not in active labor Plan IUP -FHT Category I, reassuring -Continue routine care -Amnisure negative - not ruptured -Plan to dc home -Labor precautions, Return to the ED if water breaks or contractions are strong , regular, and less than 10 mins apart Discussed with Letty Sarkar MD Sep 02, 2017 16:13
--- NOTE | 2017-09-02 16:25 | PD ---
HPI Chief Complaint Leaking Date Seen: Sep 02, 2017 Travel History International Travel<30 Days: No Contact w/Intl Traveler<30Days: No Known Affected Area: No History of Present Illness HPI Patient is a 21-year-old at 39/4 weeks gestation that presents to the [facility] ED with a chief complaint of leaking that began 30 minutes ago after she had sexual intercourse. She was last seen in the ED yesterday for contractions and leaking, amnisure was negative and she was not in active labor although she was having contractions. She still feels contractions but they are bearable. No other complaints except hot flashes. Patient gets her care at the [facility] with Dr. Yuliana Breen. Notably, she is GBS positive. History Past Medical History Medical History: Denies Significant Hx Past Surgical History Surgical History: No Previous Surgery Family History Family History: Negative Social History Alcohol Use: No Tobacco Use: No Substance Abuse: No Allergies-Medications (Allergen,Severity, Reaction): Coded Allergies: amoxicillin (Verified Allergy, Intermediate, HIVES, 07/19/17) Home Meds Active Scripts Prednisone (Prednisone) 20 Mg Tab, 20 MG PO DAILY for 5 Days, #5 TAB 0 Refills Prov:Adrián Meyers MD 07/19/17 Nebulizer Kit/Tubing/Mout (Nebulizer Kit/Tubing/Mout) 1 Kit Kit, KIT .XX DIRECTED for Breathing Treatment, #1 0 Refills Prov:Adrián Meyers MD 07/19/17 Albuterol Neb (Albuterol Neb) 2.5 Mg/3 Ml Neb, 2.5 MG NEB Q6HR Y for SHORTNESS OF BREATH, #60 NEBULE 0 Refills Prov:Adrián Meyers MD 07/19/17 Nitrofurantoin Monohydrate Macrocrystals (Macrobid) 100 Mg Cap, 100 MG PO BID for Infection for 7 Days, #14 CAP 0 Refills Prov:Adrián Meyers MD 07/19/17 Reported Medications Albuterol 8.5 GM Inh (Proair Hfa 8.5 GM Inh) 90 Mcg/Act Aer, 2 PUFF INH Q4-6H Y for SHORTNESS OF BREATH, #1 INHALER 0 Refills 108 mcg/actuation 07/19/17 [ ] No Conflict Check, 1 TAB PO DAILY 05/12/17 Review of Systems Except as stated in HPI: all other systems reviewed are Neg Physical Exam Narrative GENERAL: Well-nourished, well-developed patient. SKIN: Warm and dry. HEAD: Normocephalic and atraumatic. EYES: No scleral icterus. No injection or drainage. ENT: No nasal drainage noted. Mucous membranes pink. Airway patent. NECK: Supple, trachea midline. No JVD. CARDIOVASCULAR: Regular rate and rhythm without murmurs, gallops, or rubs. RESPIRATORY: Breath sounds equal bilaterally. No accessory muscle use. Diffuse wheezing in bilateral airfields ABDOMEN/GI: Abdomen soft, non-tender, bowel sounds present, no rebound, no guarding Gravid to 39 weeks size GENITOURINARY: External Genitalia: intact and normal in appearance Cervix: Posterior Dilatation: 1-2cm Effacement: 50 Station: -3 Presentation: [cephalic Membranes: intact Uterine Contractions: present q4-6 mins FHT's: Category: I Baseline: 140 Reactive: accels present Variability: Moderate Decels: None EXTREMITIES: No cyanosis or edema. BACK: Nontender without obvious deformity. No CVA tenderness. NEUROLOGICAL: Awake and alert. Motor and sensory grossly within normal limits. Five out of 5 muscle strength in all muscle groups. Normal speech. Data Data Vital Signs Reviewed: Yes Group B Strep: Positive MDM Medical Record Reviewed: Yes Interpretation(s) 21 y/o presents with uterine contractions but not in active labor Plan IUP -FHT Category I, reassuring -Continue routine care -Amnisure negative - not ruptured -Wet prep profile negative -UA not indicative of infection -After walking the hallways for 1 hour, vaginal exam was repeated and was 2/50/- 3 -Plan to dc home -Labor precautions, Return to the ED if water breaks or contractions are strong , regular, and less than 10 mins apart Discussed with Dr. Jenkins Diagnosis Diagnosis: Primary Impression: Uterine contractions during Disposition: 01 DISCHARGE HOME Condition: Stable Eko,Letty OLIVEIRA Sep 02, 2017 16:25
== END 2017-09-02 17:06 | disposition home or self-care (01) ==
LOC: HOBED 15:41
DX: O26.893 Other specified pregnancy related conditions, third trimester (principal); N85.8 Other specified noninflammatory disorders of uterus; O99.820 Streptococcus B carrier state complicating pregnancy; Z3A.39 39 weeks gestation of pregnancy
CPT/HCPCS: 59025; 84112

== ENCOUNTER → 2017-09-05 | Emergency (ER) | payer OTHER ==
[~2017-09-05] MED LIST changes: +ACET325T15 PO; +ACYC400T PO; +IBUP1TAB7 PO; +NORE0.354 PO; +VIST50CA PO
--- NOTE | 2017-09-05 17:51 | PD ---
HPI Chief Complaint Contractions Date Seen: Sep 05, 2017 Time Seen: 17:50 Travel History International Travel<30 Days: No Contact w/Intl Traveler<30Days: No History of Present Illness HPI Patient is a 21 yr old at 40 and 0/7 weeks gestation who presents for uterine contractions. OB care with Dr. Yuliana Breen. She states they are occurring every 5-7 minutes today. She is feeling baby move, has not had gush of fluid, and denies vaginal bleeding. She has had a course complicated by asthma symptoms, HSV on acyclovir since 32 weeks, and GBS positive. She is also Rh negative and received Rhogam. All other workup unremarkable. She has been to ED many times in the last two weeks for similar symptoms. Using albuterol inhaler occasionally. Denies chest pain, shortness of breath, n/v, headaches, blurry vision, LE edema. History Past Medical History Narrative Medical Asthma - exacerbation requiring hospitalization ([facility]) first trimester HSV positive Obstetric History Obstetric History Rhogam given at 20 weeks GBS positive On acyclovir Past Surgical History Narrative Surgical None Family History Narrative Family History No remarkable family history reported Social History Narrative Social History Denies tobacco, alcohol, and illicit drug use Allergies-Medications (Allergen,Severity, Reaction): Coded Allergies: amoxicillin (Verified Allergy, Intermediate, HIVES, 07/19/17) Home Meds Active Scripts Prednisone (Prednisone) 20 Mg Tab, 20 MG PO DAILY for 5 Days, #5 TAB 0 Refills Prov:Adrián Meyers MD 07/19/17 Nebulizer Kit/Tubing/Mout (Nebulizer Kit/Tubing/Mout) 1 Kit Kit, KIT .XX DIRECTED for Breathing Treatment, #1 0 Refills Prov:Adrián Meyers MD 07/19/17 Albuterol Neb (Albuterol Neb) 2.5 Mg/3 Ml Neb, 2.5 MG NEB Q6HR Y for SHORTNESS OF BREATH, #60 NEBULE 0 Refills Prov:Adrián Meyers MD 07/19/17 Nitrofurantoin Monohydrate Macrocrystals (Macrobid) 100 Mg Cap, 100 MG PO BID for Infection for 7 Days, #14 CAP 0 Refills Prov:Adrián Meyers MD 07/19/17 Reported Medications Albuterol 8.5 GM Inh (Proair Hfa 8.5 GM Inh) 90 Mcg/Act Aer, 2 PUFF INH Q4-6H Y for SHORTNESS OF BREATH, #1 INHALER 0 Refills 108 mcg/actuation 07/19/17 [ ] No Conflict Check, 1 TAB PO DAILY 05/12/17 Review of Systems Except as stated in HPI: all other systems reviewed are Neg Physical Exam Narrative GENERAL: Well-nourished, well-developed female in no apparent distress SKIN: Warm and dry. NO rashes. HEAD: Normocephalic and atraumatic. EYES: No scleral icterus. No injection or drainage. ENT: No nasal drainage noted. Mucous membranes pink. Airway patent. NECK: Supple, trachea midline. No JVD. CARDIOVASCULAR: Regular rate and rhythm without murmurs, gallops, or rubs. RESPIRATORY: Breath sounds equal bilaterally. No accessory muscle use.No wheezes ABDOMEN/GI: Abdomen soft, non-tender, bowel sounds present, no rebound, no guarding Gravid to 40 weeks size GENITOURINARY: External Genitalia: intact and normal in appearance. No lesions noted. Cervix: 1-2/50/-2 Presentation: vertex Membranes: intact Uterine Contractions: every 5-7 min FHT's: Category: 1 Baseline: 130s Reactive: y Variability: mod Decels: absent EXTREMITIES: No cyanosis or edema. BACK: Nontender without obvious deformity. No CVA tenderness. NEUROLOGICAL: Awake and alert. Motor and sensory grossly within normal limits.Normal speech. Data Data Vital Signs Reviewed: Yes Orders Orders Vital Signs (Adult) .ON ADMISSION (09/05/17 17:48) ^ Labor Status (09/05/17 17:48) ^ Non Stress Test (09/05/17 17:48) ^ Hydration (09/05/17 17:48) Group B Strep: Positive MDM Narrative Course / MDM 21-year-old at 40 and 0 today, complaining of contractions. HSV positive on acyclovir. GBS positive. Category 1 tracing, john every 4-7 minutes at this point with no cervical change from previous exam in OB ED. Patient counseled to walk, and will recheck cervix at about an hour to assess for cervical change. If all for labor we'll admit, if not qualifying for labor we will set up patient with induction at or before 41 weeks. Update: cervical recheck unchanged, pt is scheduled for induction, will come in ThursdaySeptember 08 at 5pm. EULOGIO Membreno Diagnosis Diagnosis: Primary Impression: 40 weeks gestation of Disposition: 01 DISCHARGE HOME Condition: Stable Yuliana Breen MD Sep 05, 2017 17:51
== END | disposition home or self-care (01) ==
LOC: HOBED 17:02
DX: O26.893 Other specified pregnancy related conditions, third trimester (principal); O99.513 Diseases of the respiratory system complicating pregnancy, third trimester; Z3A.40 40 weeks gestation of pregnancy; Z88.0 Allergy status to penicillin
CPT/HCPCS: 59025

== ENCOUNTER 2017-09-09 03:39 | Emergency (ER) | payer OTHER ==
[~2017-09-09 03:39] MED LIST changes: -ACET325T15 PO; -ACYC400T PO; -IBUP1TAB7 PO; -NORE0.354 PO; -VIST50CA PO
--- NOTE | 2017-09-09 04:53 | PD ---
HPI Chief Complaint contractions and bright red mucus discharge Date Seen: Sep 09, 2017 Time Seen: 04:44 Travel History International Travel<30 Days: No Contact w/Intl Traveler<30Days: No Known Affected Area: No History of Present Illness HPI Patient is a 21-year-old at 40/4 weeks gestation with significant PMHx of asthma and genital herpes on acyclovir who presented to the OB triage due to complaints of contractions and bright red blood mucus discharge. Patient stated she was unable to sleep due to discomfort of contractions that were occurring about every 4mins. Patient is GBS positive, endorses movement and denies loss of gush of fluid. Patient also mentioned that since yesterday after walking she experience bilateral lower extremity swelling, blurry vision and is now complaining of a headache. Blurry vision has resolved and it usually occurs when she is exerting herself walking around. Patient denies any complications with this . Denies CP, SOB, RUQ pain. Of note, pt stated she had normal u/s done on 09/08 and estimated weight was 9-10lbs. Weeks Gestation: 40 Para: 1 : 1 Miscarriage: 0 : 0 History Past Medical History Narrative Medical Asthma- uses inhaler about 2 times a day since beginning of , last used 3-4days ago Genital herpes-- on acyclovir, denies any current vaginal lesions or outbreaks during the IBS Obstetric History Obstetric History denies miscarriages or abortions Denies any complications during this . Past Surgical History Narrative Surgical Cholecystectomy, 2011 Skull fx, occurred when she was 1 yo, treated no issues since then Family History Narrative Family History Grandmother--diabetes, hypertension, COPD No history of congenital heart disease in the family Social History Alcohol Use: No Tobacco Use: No Substance Abuse: No Allergies-Medications (Allergen,Severity, Reaction): Coded Allergies: amoxicillin (Verified Allergy, Intermediate, HIVES, 07/19/17) Home Meds Active Scripts Hydroxyzine Pamoate (Vistaril) 50 Mg Cap, 50 MG PO QID Y for SLEEP, #120 CAP 0 Refills Prov:Arnold Roth MD, R1 09/09/17 Prednisone (Prednisone) 20 Mg Tab, 20 MG PO DAILY for 5 Days, #5 TAB 0 Refills Prov:Adrián Meyers MD 07/19/17 Nebulizer Kit/Tubing/Mout (Nebulizer Kit/Tubing/Mout) 1 Kit Kit, KIT .XX DIRECTED for Breathing Treatment, #1 0 Refills Prov:Adrián Meyers MD 07/19/17 Albuterol Neb (Albuterol Neb) 2.5 Mg/3 Ml Neb, 2.5 MG NEB Q6HR Y for SHORTNESS OF BREATH, #60 NEBULE 0 Refills Prov:Adrián Meyers MD 07/19/17 Nitrofurantoin Monohydrate Macrocrystals (Macrobid) 100 Mg Cap, 100 MG PO BID for Infection for 7 Days, #14 CAP 0 Refills Prov:Adrián Meyers MD 07/19/17 Reported Medications Albuterol 8.5 GM Inh (Proair Hfa 8.5 GM Inh) 90 Mcg/Act Aer, 2 PUFF INH Q4-6H Y for SHORTNESS OF BREATH, #1 INHALER 0 Refills 108 mcg/actuation 07/19/17 [ ] No Conflict Check, 1 TAB PO DAILY 05/12/17 Review of Systems General / Constitutional: No: Fever, Weight Loss HENT: Headaches Cardiovascular: Edema, No: Chest Pain or Discomfort Respiratory: No: Cough, Short of Breath Gastrointestinal: No: Nausea, Vomiting, Diarrhea, Abdominal Pain Genitourinary: No: Urgency, Dysuria Skin: No Rash Neurologic: Dizziness, Headache Physical Exam Narrative GENERAL: Well-nourished, well-developed patient. SKIN: Warm and dry. HEAD: Normocephalic and atraumatic. EYES: No scleral icterus. No injection or drainage. ENT: No nasal drainage noted. Mucous membranes pink. Airway patent. NECK: Supple, trachea midline. No JVD. CARDIOVASCULAR: Regular rate and rhythm without murmurs, gallops, or rubs. RESPIRATORY: Mild expiratory wheezes noted more pronounced at left lung base. No accessory muscle use. ABDOMEN/GI: gravid Abdomen soft, non-tender, bowel sounds present, no rebound, no guarding Gravid to 40/4 weeks size GENITOURINARY: External Genitalia: intact and normal in appearance Dilatation: 1-2 Effacement: 60% Station: -2 Presentation: Vertex Membranes: intact Uterine Contractions: every 4 mins FHT's: Category: 1 Baseline: 150 Reactive: yes Variability: Moderate Decels: none EXTREMITIES: No cyanosis, trace LE edema noted BL. BACK: Nontender without obvious deformity. No CVA tenderness. NEUROLOGICAL: Awake and alert. Motor and sensory grossly within normal limits. Five out of 5 muscle strength in all muscle groups. Normal speech. Data Data Vital Signs Reviewed: Yes Group B Strep: Positive MDM Medical Record Reviewed: Yes Plan Patient is a 21-year-old at 40/4 weeks gestation with significant PMHx of asthma and genital herpes on acyclovir who presented to the OB triage due to complaints of contractions and bright red blood mucus discharge. Patient will be placed on observation to monitor for labor progression. GBS positive FHT WNL Category 1 c/w oral hydration tylenol 650mg x1 for JOHNSON will keep patient on monitor to assess contractions and plan to repeat vaginal exam update: repeat cervical check Cervix 1-2 cm effacement: 60% contraction every 4mins FHT WNL Category 1 Plan for induction at 41 wk GA on 09/12/17 at midnight Vistaril 100mg x1 given to aid pt with sleep and anxiety Diagnosis Diagnosis: Primary Impression: 40 weeks gestation of Disposition: DISCHARGE HOME Condition: Stable Scripts Hydroxyzine Pamoate (Vistaril) 50 Mg Cap 50 MG PO QID Y for SLEEP, #120 CAP 0 Refills Prov: Arnold Roth MD, R1 09/09/17 Patient Instructions: Movement (ED), Having Your Baby: The Labor Process (GEN) Arnold Roth MD, R1 Sep 09, 2017 04:53
[2017-09-09] MEDS ORDERED: ACETAMINOPHEN 325 MG TAB PO ONE (06:00)
[2017-09-09] MEDS ORDERED: VIST50CA PO (06:37)
[2017-09-10] MEDS ORDERED: ACYC400T PO (19:26)
== END 2017-09-09 07:00 | disposition home or self-care (01) ==
LOC: HOBED 03:39
DX: O26.893 Other specified pregnancy related conditions, third trimester (principal); O98.313 Other infections with a predominantly sexual mode of transmission complicating pregnancy, third trimester; A60.00 Herpesviral infection of urogenital system, unspecified; Z3A.40 40 weeks gestation of pregnancy
CPT/HCPCS: 59025

== ENCOUNTER 2017-09-10 11:12 | Inpatient (IN) | payer OTHER ==
[~2017-09-10] VITALS: Ht 162.6 cm; Wt 98.9 kg
[2017-09-10] VITALS (118 sets, daily range): BP systolic 116–146; BP diastolic 47–110; PULSE 78–107; RESP 15–18; TEMP 97.5–97.8; O2SAT 99–100
[~2017-09-10 11:12] MED LIST changes: +VIST50CA PO
[2017-09-10] MEDS ORDERED: LACTATED RINGER'S 1000 ML INJ 1,000 ML IV PRN (11:53)
[2017-09-10] MEDS ORDERED: OXYTOCIN 30 UNITS-500ML PREMIX 500 ML IV ONE (12:00)
[2017-09-10] MEDS ORDERED: SODIUM CHLORID 0.9% 500 ML INJ 500 ML IV PRN (12:00)
[2017-09-10] MEDS ORDERED: LIDOCAINE HCL 1% 50 ML VIAL I-DERMAL PRN (12:00)
[2017-09-10] MEDS ORDERED: ONDANSETRON HCL 4 MG/2 ML VIAL IV PUSH PRN (12:00)
[2017-09-10] MEDS ORDERED: MINERAL OIL 10 ML VIAL TOPICAL PRN (12:00)
[2017-09-10] MEDS ORDERED: LIDOCAINE HCL 1% 50 ML VIAL INFIL PRN (12:00)
[2017-09-10] MEDS ORDERED: CITRIC ACID-SODIUM CITRATE LIQ 30 ML UDC PO SCH (12:00)
[2017-09-10] MEDS ORDERED: SODIUM CHLOR 0.9% 1000 ML INJ 1,000 ML IV PRN (12:13)
--- NOTE | 2017-09-10 12:29 | PD ---
HPI Chief Complaint contractions Date Seen: Sep 10, 2017 Time Seen: 11:45 Travel History International Travel<30 Days: No Contact w/Intl Traveler<30Days: No Known Affected Area: No History of Present Illness HPI Ms. Valladares is a 21-year-old at 41/0 weeks gestation presented today due to contractions. She states that the contractions started yesterday afternoon. At first there are more spaced out but recently he started being every 4-5 minutes. She describes the patient has had lower abdominal pain, worsened. Cramps," feels like someone is ripping my insides out." She states that she started having vaginal bleeding yesterday that she describes as mucus that was blood-tinged. She is feeling the baby move. No chest pain, shortness of breath , no calf pain, no nausea or vomiting. She is having some dysuria that started with the contractions. History Past Medical History Narrative Medical Asthma Genital herpes Obstetric History Obstetric History Past Surgical History Narrative Surgical Cholecystectomy Skull fracture reconstruction Family History Narrative Family History Mother-hypertension, hyperthyroidism Father-paranoid schizophrenia Social History Narrative Social History Lives with her mother and boyfriend Currently unemployed Denies alcohol, tobacco, or illicit drug use Alcohol Use: No Tobacco Use: No Substance Abuse: No Allergies-Medications (Allergen,Severity, Reaction): Coded Allergies: amoxicillin (Verified Allergy, Intermediate, HIVES, 07/19/17) Home Meds Active Scripts Hydroxyzine Pamoate (Vistaril) 50 Mg Cap, 50 MG PO QID Y for SLEEP, #120 CAP 0 Refills Prov:Arnold Roth MD, R1 09/09/17 Prednisone (Prednisone) 20 Mg Tab, 20 MG PO DAILY for 5 Days, #5 TAB 0 Refills Prov:Adrián Meyers MD 07/19/17 Nebulizer Kit/Tubing/Mout (Nebulizer Kit/Tubing/Mout) 1 Kit Kit, KIT .XX DIRECTED for Breathing Treatment, #1 0 Refills Prov:Adrián Meyers MD 07/19/17 Albuterol Neb (Albuterol Neb) 2.5 Mg/3 Ml Neb, 2.5 MG NEB Q6HR Y for SHORTNESS OF BREATH, #60 NEBULE 0 Refills Prov:Adrián Meyers MD 07/19/17 Nitrofurantoin Monohydrate Macrocrystals (Macrobid) 100 Mg Cap, 100 MG PO BID for Infection for 7 Days, #14 CAP 0 Refills Prov:Adrián Meyers MD 07/19/17 Reported Medications Albuterol 8.5 GM Inh (Proair Hfa 8.5 GM Inh) 90 Mcg/Act Aer, 2 PUFF INH Q4-6H Y for SHORTNESS OF BREATH, #1 INHALER 0 Refills 108 mcg/actuation 07/19/17 [ ] No Conflict Check, 1 TAB PO DAILY 05/12/17 Review of Systems General / Constitutional: No: Fever, Chills Eyes: No: Blurred Vision HENT: No: Headaches Cardiovascular: No: Chest Pain or Discomfort Respiratory: No: Short of Breath Gastrointestinal: No: Nausea, Vomiting Genitourinary: Dysuria Musculoskeletal: No: Weakness Skin: No Rash Physical Exam Narrative GENERAL: Well-nourished, well-developed patient. SKIN: Warm and dry. HEAD: Normocephalic and atraumatic. EYES: No scleral icterus. No injection or drainage. ENT: No nasal drainage noted. Mucous membranes pink. Airway patent. NECK: Supple, trachea midline. No JVD. CARDIOVASCULAR: Regular rate and rhythm without murmurs, gallops, or rubs. RESPIRATORY: Breath sounds equal bilaterally. No accessory muscle use. ABDOMEN/GI: Abdomen soft, non-tender, bowel sounds present, no rebound, no guarding Gravid to 41 weeks size GENITOURINARY: External Genitalia: intact and normal in appearance Cervix: posterior Dilatation: 3-4 Effacement: 80 Station: -2 Presentation: vertex Membranes: intact Uterine Contractions: q4-6min FHT's: Category: 1 Baseline: 150s Reactive: yes Variability: moderate Decels: none EXTREMITIES: No cyanosis or edema. BACK: Nontender without obvious deformity. No CVA tenderness. NEUROLOGICAL: Awake and alert. Motor and sensory grossly within normal limits. Five out of 5 muscle strength in all muscle groups. Normal speech. Data Data Vital Signs Reviewed: Yes Group B Strep: Positive MDM Plan 21-year-old at 40/0 weeks gestation presented with contractions. Cervix is 3-4 cm/80/-2, this is progressed since her last cervical exam yesterday FHT shows category 1 tracing, reassuring, shows contractions q 4-6 minutes Patient has begun labor Will admit to labor and delivery, PCP Dr. Yuliana Breen has been informed -CBC, ABO/Rh, UA, drug screen will be ordered -Will continue to monitor FHT for any signs of distress and adjust plan as needed -Will recheck cervix in a few hours WDW with Dr. Pfeiffer Diagnosis Diagnosis: Primary Impression: 41 weeks gestation of Giselle Duarte MD R1 Sep 10, 2017 12:29
--- NOTE | 2017-09-10 12:43 | HHI.HP ---
HPI Chief Complaint contractions Date Seen: Sep 10, 2017 Time Seen: 12:33 Travel History International Travel<30 Days: No Contact w/Intl Traveler<30Days: No Known Affected Area: No History of Present Illness HPI Ms. Valladares is a 21-year-old at 41/0 weeks gestation presented today due to contractions. She states that the contractions started yesterday afternoon. At first there are more spaced out but recently he started being every 4-5 minutes. She describes the patient has had lower abdominal pain, worsened. Cramps," feels like someone is ripping my insides out." She states that she started having vaginal bleeding yesterday that she describes as mucus that was blood-tinged. She is feeling the baby move. No chest pain, shortness of breath , no calf pain, no nausea or vomiting. She is having some dysuria that started with the contractions. History Past Medical History Narrative Medical Asthma Genital herpes-last outbreak one year ago Obstetric History Obstetric History Past Surgical History Narrative Surgical Cholecystectomy Skull fracture reconstruction Family History Narrative Family History Mother-hypertension, hypothyroidism Father-paranoid schizophrenia Social History Narrative Social History Lives with her mother and boyfriend Unemployed Denies alcohol, tobacco, or illicit drug use Alcohol Use: No Tobacco Use: No Substance Abuse: No Allergies-Medications (Allergen,Severity, Reaction): Coded Allergies: amoxicillin (Verified Allergy, Intermediate, HIVES, 07/19/17) Home Meds Active Scripts Hydroxyzine Pamoate (Vistaril) 50 Mg Cap, 50 MG PO QID Y for SLEEP, #120 CAP 0 Refills Prov:Arnold Roth MD, R1 09/09/17 Prednisone (Prednisone) 20 Mg Tab, 20 MG PO DAILY for 5 Days, #5 TAB 0 Refills Prov:Adrián Meyers MD 07/19/17 Nebulizer Kit/Tubing/Mout (Nebulizer Kit/Tubing/Mout) 1 Kit Kit, KIT .XX DIRECTED for Breathing Treatment, #1 0 Refills Prov:Adrián Meyers MD 07/19/17 Albuterol Neb (Albuterol Neb) 2.5 Mg/3 Ml Neb, 2.5 MG NEB Q6HR Y for SHORTNESS OF BREATH, #60 NEBULE 0 Refills Prov:Adrián Meyers MD 07/19/17 Nitrofurantoin Monohydrate Macrocrystals (Macrobid) 100 Mg Cap, 100 MG PO BID for Infection for 7 Days, #14 CAP 0 Refills Prov:Adrián Meyers MD 07/19/17 Reported Medications Albuterol 8.5 GM Inh (Proair Hfa 8.5 GM Inh) 90 Mcg/Act Aer, 2 PUFF INH Q4-6H Y for SHORTNESS OF BREATH, #1 INHALER 0 Refills 108 mcg/actuation 07/19/17 [ ] No Conflict Check, 1 TAB PO DAILY 05/12/17 Review of Systems General / Constitutional: No: Fever, Chills Eyes: No: Blurred Vision HENT: No: Headaches Cardiovascular: No: Chest Pain or Discomfort Respiratory: No: Short of Breath Gastrointestinal: No: Nausea, Vomiting Genitourinary: Dysuria Musculoskeletal: No: Weakness Skin: No Rash Physical Exam Narrative GENERAL: Well-nourished, well-developed patient. SKIN: Warm and dry. HEAD: Normocephalic and atraumatic. EYES: No scleral icterus. No injection or drainage. ENT: No nasal drainage noted. Mucous membranes pink. Airway patent. NECK: Supple, trachea midline. No JVD. CARDIOVASCULAR: Regular rate and rhythm without murmurs, gallops, or rubs. RESPIRATORY: Breath sounds equal bilaterally. No accessory muscle use. ABDOMEN/GI: Abdomen soft, non-tender, bowel sounds present, no rebound, no guarding Gravid to 41 weeks size GENITOURINARY: External Genitalia: intact and normal in appearance Cervix: posterior Dilatation: 3-4 Effacement: 80 Station: -2 Presentation: vertex Membranes: intact Uterine Contractions: q4-6min FHT's: Category: 1 Baseline: 150s Reactive: yes Variability: moderate Decels: none EXTREMITIES: No cyanosis or edema. BACK: Nontender without obvious deformity. No CVA tenderness. NEUROLOGICAL: Awake and alert. Motor and sensory grossly within normal limits. Five out of 5 muscle strength in all muscle groups. Normal speech. Caprini VTE Risk Assessment Caprini VTE Risk Assessment: Mod/High Risk (score >= 2) Caprini Risk Assessment Model Point Value = 1 Point Value = 2 Point Value = 3 Point Value = 5 Age 41-60 Minor surgery BMI > 25 kg/m2 Swollen legs Varicose veins or History of unexplained or recurrent spontaneous Oral contraceptives or hormone replacement Sepsis (< 1 month) Serious lung disease, including pneumonia (< 1 month) Abnormal pulmonary function Acute myocardial infarction Congestive heart failure (< 1 month) History of inflammatory bowel disease Medical patient at bed rest Age 61-74 Arthroscopic surgery Major open surgery (> 45 min) Laparoscopic surgery (> 45 min) Malignancy Confined to bed (> 72 hours) Immobilizing plaster cast Central venous access Age >= 75 History of VTE Family history of VTE Factor V Leiden Prothrombin [id number] Lupus anticoagulant Anticardiolipin antibodies Elevated serum homocysteine Heparin-induced thrombocytopenia Other congenital or acquired thrombophilia Stroke (< 1 month) Elective arthroplasty Hip, pelvis, or leg fracture Acute spinal cord injury (< 1 month) Prophylaxis Regimen Total Risk Factor Score Risk Level Prophylaxis Regimen 0-1 Low Early ambulation 2 Moderate Order ONE of the following: *Sequential Compression Device (SCD) *Heparin 5000 units SQ BID 3-4 Higher Order ONE of the following medications: *Heparin 5000 units SQ TID *Enoxaparin/Lovenox 40 mg SQ daily (WT < 150 kg, CrCl > 30 mL/min) *Enoxaparin/Lovenox 30 mg SQ daily (WT < 150 kg, CrCl > 10-29 mL/min) *Enoxaparin/Lovenox 30 mg SQ BID (WT < 150 kg, CrCl > 30 mL/min) AND/OR *Sequential Compression Device (SCD) 5 or more Highest Order ONE of the following medications: *Heparin 5000 units SQ TID (Preferred with Epidurals) *Enoxaparin/Lovenox 40 mg SQ daily (WT < 150 kg, CrCl > 30 mL/min) *Enoxaparin/Lovenox 30 mg SQ daily (WT < 150 kg, CrCl > 10-29 mL/min) *Enoxaparin/Lovenox 30 mg SQ BID (WT < 150 kg, CrCl > 30 mL/min) AND *Sequential Compression Device (SCD) Data Data Vital Signs Reviewed: Yes Group B Strep: Positive Assessment/Plan Assessment and Plan 21-year-old at 40/0 weeks gestation presented with contractions. Cervix is 3-4 cm/80/-2, this is progressed since her last cervical exam yesterday FHT shows category 1 tracing, reassuring, shows contractions q 4-6 minutes Patient has begun labor Will admit to labor and delivery, PCP Dr. Yuliana Breen has been informed -CBC, ABO/Rh, UA, drug screen will be ordered -Will continue to monitor FHT for any signs of distress and adjust plan as needed -Will recheck cervix in a few hours WDW with Giselle Fallon MD R1 Sep 10, 2017 12:43
[2017-09-10] MEDS: LACTATED RINGER'S 1000 ML INJ 1,000 ML IV SCH ×2 (12:52→19:53)
[2017-09-10 13:02] LABS: AUTOMATED NEUTROPHIL # 9.4 TH/MM3 (1.8-7.7); BASOPHIL # 0.1 TH/MM3 (0-0.2); BASOPHIL % 0.5 % (0.0-2.0); EOSINOPHIL # 0.2 TH/MM3 (0-0.4); EOSINOPHIL % 1.3 % (0.0-4.0); HEMATOCRIT 43.5 % (35.0-46.0); HEMOGLOBIN 14.7 GM/DL (11.6-15.3); LYMPH % 29.7 % (9.0-44.0); LYMPHOCYTE # 4.6 TH/MM3 (1.0-4.8); MEAN CELL VOLUME 84.4 FL (80.0-100.0); MEAN CORPUSCULAR HEMOGLOBIN 28.6 PG (27.0-34.0); MEAN CORPUSCULAR HGB CONC 33.9 % (32.0-36.0); MEAN PLATELET VOLUME 10.1 FL (7.0-11.0); MONO % 7.9 % (0.0-8.0); MONOCYTE # 1.2 TH/MM3 (0-0.9); NEUT % 60.6 % (16.0-70.0); PLATELET COUNT 199 TH/MM3 (150-450); RED BLOOD COUNT 5.15 MIL/MM3 (4.00-5.30); RED CELL DISTRIBUTION WIDTH 14.2 % (11.6-17.2); WHITE BLOOD COUNT 15.5 TH/MM3 (4.0-11.0)
[2017-09-10 13:09] LABS: BILIRUBIN, URINE NEG (NEG); BLOOD, URINE NEG (NEG); GLUCOSE,URINE NEG (NEG); KETONE, URINE NEG (NEG); MUCUS URINE FEW /lpf (OCC); NITRITE,URINE NEG (NEG); SQUAMOUS EPITHELIAL CELL URINE 1 /hpf (0-5); URINE COLOR YELLOW (YELLW/STRAW); URINE LEUKOCYTE ESTERASE TRACE (NEG)
[2017-09-10] MEDS ORDERED: ceFAZolin INJ 1,000 MG VIAL ONE (13:26)
[2017-09-10] MEDS ORDERED: SODIUM CHLORIDE 0.9% INJ 0 ML ONE (13:27)
[2017-09-10] MEDS ORDERED: ceFAZolin 2 GM PREMIX 50 ML IV ONE (13:30)
[2017-09-10] MEDS ORDERED: diphenhydrAMINE HCL 50 MG/ML VIAL IV PRN (13:30)
--- NOTE | 2017-09-10 15:39 | PD.LABORPN ---
Subjective Subjective Patient states that she is comfortable at this time. She has declined an epidural. She has no complaints. She is amenable to labor augmentation with Pitocin. She will reconsider her pain management options further on the labor process. Objective Vital Signs Vital Signs Date Time Temp Pulse Resp B/P (MAP) Pulse Ox O2 Delivery O2 Flow Rate FiO2 09/10/17 15:20 93 09/10/17 15:17 97.8 18 09/10/17 15:17 81 143/84 (103) 09/10/17 15:15 87 09/10/17 13:55 87 09/10/17 13:50 85 09/10/17 13:48 82 141/84 (103) 09/10/17 13:45 88 Objective Pelvic Exam: Cervix: posterior Dilatation: 3 Effacement: 80 Station: -1 Presentation: vertex Membranes: intact Uterine Contractions: q6min FHT's: Category: 1 Baseline: 140s Reactive: yes Variability: moderate Decels: none Assessment/Plan Assessment and Plan 21-year-old at 40/0 weeks gestation presented with contractions. Cervix on admission was 3-4 cm/80/-2, this is progressed since her last cervical exam yesterday FHT shows category 1 tracing, reassuring, shows contractions q4-6 minutes on admission Patient has begun labor Will admit to labor and delivery, PCP Dr. Yuliana Breen has been informed Update: -Cervix recheck at 1530 was 3/80/-1. Decrease from my last exam. Also. Contractions are now q6m. -Will start Pitocin and recheck in a few hours -Patient has declined epidural at this time. Will give the opportunity for labor augmentation with further dilation then will allow her to reconsider her pain management options. Giselle Duarte MD R1 Sep 10, 2017 15:39
[2017-09-10] MEDS ORDERED: OXYTOCIN 30 UNITS-500ML PREMIX 500 ML IV PRN (15:45)
--- NOTE | 2017-09-10 16:43 | PD.LABORPN ---
Subjective Subjective Patient was seen and examined. She is feeling strong ctx every 7 min, not ready for fentanyl. cervical change not appreciated after 4 hr. Cat 1 tracing Objective Vital Signs Vital Signs Date Time Temp Pulse Resp B/P (MAP) Pulse Ox O2 Delivery O2 Flow Rate FiO2 09/10/17 15:20 93 09/10/17 15:17 97.8 18 09/10/17 15:17 81 143/84 (103) 09/10/17 15:15 87 09/10/17 13:55 87 09/10/17 13:50 85 09/10/17 13:48 82 141/84 (103) 09/10/17 13:45 88 Objective Pelvic Exam: Cervix: 2/80/-1 Presentation: vertex Membranes: intact Uterine Contractions: q7min FHT's: Category:-1 Baseline: 140s Reactive: 160s Variability: mod Decels: absent Pt started active labor?: No Medical induction of labor?: Yes Medical induction start date: Sep 10, 2017 Medical induction start time: 16:38 Artificial rupture of membrane: No Assessment/Plan Problem List: (1) 41 weeks gestation of ICD Codes: Z3A.41 - 41 weeks gestation of Status: Acute Assessment and Plan 21-year-old at 40/0 weeks gestation presented with contractions. IUP: Cervix is 2-3/80/-1, no change since 12pm Cat 1 tracing, reassuring CTX q 7 min Labor management per protocol CBC showing leukocytosis, no signs of infection noted RH negative, she had Rhogam at 20 weeks UDS negative so far Augmentation of Labor: Cytotec 25mcg buccal q4hr PRN GBS positive: Ancef initiated at time of admission HSV history: no active lesions, on acyclovir since 32 weeks. DW with Yuliana Weldon MD Sep 10, 2017 16:43
[2017-09-10] MEDS: MISOPROSTOL 25 MCG TAB PO SCH ×2 (17:19→21:18)
--- NOTE | 2017-09-10 19:15 | PD.LABORPN ---
Subjective Subjective Patient was seen and examined. She is feeling strong ctx every 5-7 min, not ready for fentanyl. Cytotec buccal placed at 5:20pm. Objective Vital Signs Vital Signs Date Time Temp Pulse Resp B/P (MAP) Pulse Ox O2 Delivery O2 Flow Rate FiO2 09/10/17 18:50 97 09/10/17 18:45 96 09/10/17 18:40 96 09/10/17 18:35 92 09/10/17 18:25 92 09/10/17 18:20 94 09/10/17 18:15 100 09/10/17 18:10 98 09/10/17 18:05 102 09/10/17 18:00 97 09/10/17 17:55 96 09/10/17 17:50 96 09/10/17 17:45 89 09/10/17 17:40 91 09/10/17 17:35 92 09/10/17 17:30 91 09/10/17 17:25 91 09/10/17 17:22 91 138/85 (102) 09/10/17 17:20 93 09/10/17 17:15 91 09/10/17 17:10 91 09/10/17 17:05 94 09/10/17 16:50 103 09/10/17 16:45 101 09/10/17 16:40 90 09/10/17 16:35 97 09/10/17 16:30 97 09/10/17 16:25 99 09/10/17 16:20 97 09/10/17 16:15 104 09/10/17 16:10 101 09/10/17 16:05 91 09/10/17 16:00 90 09/10/17 15:55 93 09/10/17 15:50 91 09/10/17 15:45 94 09/10/17 15:40 91 09/10/17 15:35 86 09/10/17 15:30 80 09/10/17 15:25 95 09/10/17 15:20 93 09/10/17 15:17 97.8 18 09/10/17 15:17 81 143/84 (103) 09/10/17 15:15 87 09/10/17 13:55 87 09/10/17 13:50 85 09/10/17 13:48 82 141/84 (103) 09/10/17 13:45 88 Objective Cervix @ 1530pm: 3/80/-1 Presentation: vertex Membranes: intact Uterine Contractions: q5-7min FHT's: Category:1 Baseline: 140s Reactive: 170s Variability: mod Decels: absent Pt started active labor?: No Medical induction of labor?: Yes Medical induction start date: Sep 10, 2017 Medical induction start time: 16:38 Artificial rupture of membrane: No Assessment/Plan Problem List: (1) 41 weeks gestation of ICD Codes: Z3A.41 - 41 weeks gestation of Status: Acute Assessment and Plan 21-year-old at 41/0 weeks gestation admitted for labor. Not in active phase. IUP: Cervix is 380/-1 as of 3:30pm Cat 1 tracing, reassuring CTX q 5-7 min Labor management per protocol CBC showing leukocytosis, no signs of infection noted RH negative, she had Rhogam at 20 weeks UDS negative so far BP mildly elevated likely 2/2 pain, no HTN during care Recheck cervix at 9:20pm (4 hr post Cytotec dose #1) Augmentation of Labor: Cytotec 25mcg buccal q4hr PRN (first dose 09/10 @ 1720) GBS positive: Ancef initiated at time of admission HSV history: no active lesions, on acyclovir since 32 weeks. Mood disorder hx: per nursing intake assessment, patient has hx anxiety and depression. Not on meds during for this and no evidence of mood disorder on assessments, will monitor while inpt DW with Yuliana Weldon MD Sep 10, 2017 16:43 Yuliana Breen MD Sep 10, 2017 19:15
[2017-09-10] MEDS ORDERED: ACYC400T PO (19:26)
[2017-09-10] MEDS ORDERED: ePHEDrine/NS 25 MG/5 ML SYRINGE ONE (22:47)
[2017-09-10] MEDS ORDERED: fentaNYL 2MCG-BUPIV 0.125% INJ 100 ML ONE (22:47)
[2017-09-10] MEDS ORDERED: ePHEDrine/NS 25 MG/5 ML SYRINGE IV PUSH PRN (23:45)
[2017-09-10] MEDS ORDERED: NO SYSTEM NARCOTICS PRN (23:45)
[2017-09-10] MEDS ORDERED: DO NOT ADMINISTER ANTICOAGULANTS PRN (23:45)
[2017-09-11] VITALS (128 sets, daily range): BP systolic 100–138; BP diastolic 50–90; PULSE 76–127; RESP 0–18; TEMP 97.5–98.4
[2017-09-11] MEDS: fentaNYL 2MCG-BUPIV 0.125% 100 ML EPIDURAL SCH ×2 (00:37→04:41)
[2017-09-11] MEDS: SODIUM CHLORIDE 0.9% FLUSH 10 ML FLUSH IV FLUSH SCH ×2 (01:00→01:10)
[2017-09-11] MEDS: MISOPROSTOL 25 MCG TAB PO SCH ×2 (01:15→04:41)
--- NOTE | 2017-09-11 02:12 | PD.LABORPN ---
Subjective Subjective Patient resting in bed. More comfortable with epidural. [place] a pop with fluid around 0140 Objective Vital Signs Vital Signs Date Time Temp Pulse Resp B/P (MAP) Pulse Ox O2 Delivery O2 Flow Rate FiO2 09/11/17 02:01 81 121/52 (75) 09/11/17 02:00 82 09/11/17 01:55 82 09/11/17 01:50 85 09/11/17 01:46 78 121/59 (79) 09/11/17 01:45 85 09/11/17 01:40 83 09/11/17 01:35 88 09/11/17 01:31 82 113/62 (79) 09/11/17 01:30 89 09/11/17 01:25 80 09/11/17 01:20 82 09/11/17 01:16 79 118/69 (85) 09/11/17 01:15 84 09/11/17 01:10 84 09/11/17 01:05 90 09/11/17 01:01 78 115/59 (77) 09/11/17 01:00 85 09/11/17 00:55 84 09/11/17 00:50 82 09/11/17 00:46 92 115/68 (84) 09/11/17 00:45 93 09/11/17 00:40 97 09/11/17 00:35 92 09/11/17 00:31 84 125/72 (89) 09/11/17 00:30 98 09/11/17 00:25 91 09/11/17 00:20 88 09/11/17 00:16 90 127/67 (87) 09/11/17 00:15 91 09/11/17 00:10 89 09/11/17 00:05 92 09/11/17 00:01 92 124/73 (90) 09/11/17 00:00 98.0 09/11/17 00:00 90 09/11/17 00:00 18 09/10/17 23:55 104 09/10/17 23:50 99 09/10/17 23:50 79 09/10/17 23:50 79 09/10/17 23:46 89 118/47 (70) 09/10/17 23:45 78 09/10/17 23:45 78 09/10/17 23:45 99 09/10/17 23:40 83 09/10/17 23:40 82 09/10/17 23:40 99 09/10/17 23:35 90 09/10/17 23:35 94 09/10/17 23:35 99 09/10/17 23:31 88 116/69 (85) 09/10/17 23:30 88 09/10/17 23:30 99 09/10/17 23:30 87 09/10/17 23:25 88 09/10/17 23:25 99 09/10/17 23:25 89 09/10/17 23:21 89 117/65 (82) 09/10/17 23:20 95 09/10/17 23:20 99 09/10/17 23:20 94 09/10/17 23:16 91 120/73 (89) 09/10/17 23:15 95 09/10/17 23:11 88 125/69 (87) 09/10/17 23:10 91 09/10/17 23:10 92 09/10/17 23:10 100 09/10/17 23:06 93 09/10/17 23:06 138/84 (102) 09/10/17 23:05 100 09/10/17 23:05 94 09/10/17 23:05 92 09/10/17 23:03 91 142/83 (102) 09/10/17 23:01 85 146/110 (122) 09/10/17 23:00 107 09/10/17 23:00 99 09/10/17 23:00 103 09/10/17 22:55 85 09/10/17 22:50 85 09/10/17 22:45 87 09/10/17 22:40 89 09/10/17 22:35 84 09/10/17 22:30 82 09/10/17 22:25 82 09/10/17 22:20 84 09/10/17 22:15 91 09/10/17 22:10 87 09/10/17 22:05 87 09/10/17 22:00 88 09/10/17 21:55 85 09/10/17 21:50 88 09/10/17 21:45 88 09/10/17 21:40 94 09/10/17 21:35 92 09/10/17 21:30 89 09/10/17 21:25 89 09/10/17 21:20 90 09/10/17 21:15 89 09/10/17 21:10 87 09/10/17 21:05 90 09/10/17 21:00 89 09/10/17 20:55 94 09/10/17 20:50 89 09/10/17 20:45 89 09/10/17 20:40 91 09/10/17 20:35 91 09/10/17 20:30 88 09/10/17 20:25 92 09/10/17 20:20 98 09/10/17 20:15 98 09/10/17 20:10 94 09/10/17 20:05 93 09/10/17 20:00 92 09/10/17 19:55 94 09/10/17 19:50 97 09/10/17 19:46 97.5 15 09/10/17 19:45 92 09/10/17 19:43 99 129/83 (98) 09/10/17 19:40 94 09/10/17 19:35 91 09/10/17 19:30 98 09/10/17 19:25 96 09/10/17 19:20 96 09/10/17 19:15 93 09/10/17 19:10 95 09/10/17 19:05 95 09/10/17 19:00 87 09/10/17 18:55 98 09/10/17 18:50 97 09/10/17 18:45 96 09/10/17 18:40 96 09/10/17 18:35 92 09/10/17 18:25 92 09/10/17 18:20 94 09/10/17 18:15 100 09/10/17 18:10 98 Objective Pelvic Exam: Cervix: Midposition Dilatation: 4-5 cm Effacement: 90-100 Station: -1 Presentation: V Membranes: SROM @ 0142 Uterine Contractions: Every 5-6 min FHT's: Category: 1 Baseline: 140 Reactive: Y Variability: moderate Decels: N Pt started active labor?: Yes Medical induction of labor?: Yes Medical induction start date: Sep 10, 2017 Medical induction start time: 16:38 Artificial rupture of membrane: No Assessment/Plan Problem List: (1) 41 weeks gestation of ICD Codes: Z3A.41 - 41 weeks gestation of Status: Acute Assessment and Plan Patient in active labor, making slow cervical change SROM @ [address] Continue IAP with Ancef S/p cytotec 25 mcg x2 Start pitocin titrated per protocol, 07/17/29 Continue routine care Mayco Dorsey MD Sep 11, 2017 02:12
[2017-09-11] MEDS: LACTATED RINGER'S 1000 ML INJ 1,000 ML IV SCH (04:41)
--- NOTE | 2017-09-11 05:18 | PD.LABORPN ---
Subjective Subjective Patient feeling comfortably, can sense ctx but not painful. Objective Vital Signs Vital Signs Date Time Temp Pulse Resp B/P (MAP) Pulse Ox O2 Delivery O2 Flow Rate FiO2 09/11/17 05:01 110 119/76 (90) 09/11/17 05:00 110 09/11/17 04:55 118 09/11/17 04:50 109 09/11/17 04:46 114 100/70 (80) 09/11/17 04:45 111 09/11/17 04:40 108 09/11/17 04:35 111 09/11/17 04:31 107 110/70 (83) 09/11/17 04:30 106 09/11/17 04:25 99 09/11/17 04:20 92 09/11/17 04:15 84 09/11/17 04:10 88 09/11/17 04:05 85 09/11/17 04:01 99 124/50 (74) 09/11/17 04:00 90 09/11/17 03:55 86 09/11/17 03:50 87 09/11/17 03:46 84 116/64 (81) 09/11/17 03:45 103 09/11/17 03:40 82 09/11/17 03:35 83 09/11/17 03:31 91 122/71 (88) 09/11/17 03:30 89 09/11/17 03:25 82 09/11/17 03:20 83 09/11/17 03:16 82 125/67 (86) 09/11/17 03:15 85 09/11/17 03:10 86 09/11/17 03:05 84 09/11/17 03:01 87 130/75 (93) 09/11/17 03:00 90 09/11/17 02:55 88 09/11/17 02:50 92 09/11/17 02:46 84 118/69 (85) 09/11/17 02:45 86 09/11/17 02:40 86 09/11/17 02:35 85 09/11/17 02:31 76 09/11/17 02:30 84 09/11/17 02:25 80 09/11/17 02:20 80 09/11/17 02:16 80 126/76 (93) 09/11/17 02:15 84 09/11/17 02:10 81 09/11/17 02:05 80 09/11/17 02:01 81 121/52 (75) 09/11/17 02:00 97.6 15 09/11/17 02:00 82 09/11/17 01:55 82 09/11/17 01:50 85 09/11/17 01:46 78 121/59 (79) 09/11/17 01:45 85 09/11/17 01:40 83 09/11/17 01:35 88 09/11/17 01:31 82 113/62 (79) 09/11/17 01:30 89 09/11/17 01:25 80 09/11/17 01:20 82 09/11/17 01:16 79 118/69 (85) 09/11/17 01:15 84 09/11/17 01:10 84 09/11/17 01:05 90 09/11/17 01:01 78 115/59 (77) 09/11/17 01:00 85 09/11/17 00:55 84 09/11/17 00:50 82 09/11/17 00:46 92 115/68 (84) 09/11/17 00:45 93 09/11/17 00:40 97 09/11/17 00:35 92 09/11/17 00:31 84 125/72 (89) 09/11/17 00:30 98 09/11/17 00:25 91 09/11/17 00:20 88 09/11/17 00:16 90 127/67 (87) 09/11/17 00:15 91 09/11/17 00:10 89 09/11/17 00:05 92 09/11/17 00:01 92 124/73 (90) 09/11/17 00:00 98.0 09/11/17 00:00 90 09/11/17 00:00 18 09/10/17 23:55 104 09/10/17 23:50 99 09/10/17 23:50 79 09/10/17 23:50 79 09/10/17 23:46 89 118/47 (70) 09/10/17 23:45 78 09/10/17 23:45 78 09/10/17 23:45 99 09/10/17 23:40 83 09/10/17 23:40 82 09/10/17 23:40 99 09/10/17 23:35 90 09/10/17 23:35 94 09/10/17 23:35 99 09/10/17 23:31 88 116/69 (85) 09/10/17 23:30 88 09/10/17 23:30 99 09/10/17 23:30 87 09/10/17 23:25 88 09/10/17 23:25 99 09/10/17 23:25 89 09/10/17 23:21 89 117/65 (82) 09/10/17 23:20 95 09/10/17 23:20 99 09/10/17 23:20 94 09/10/17 23:16 91 120/73 (89) 09/10/17 23:15 95 09/10/17 23:11 88 125/69 (87) 09/10/17 23:10 91 09/10/17 23:10 92 09/10/17 23:10 100 09/10/17 23:06 93 09/10/17 23:06 138/84 (102) 09/10/17 23:05 100 09/10/17 23:05 94 09/10/17 23:05 92 09/10/17 23:03 91 142/83 (102) 09/10/17 23:01 85 146/110 (122) 09/10/17 23:00 107 09/10/17 23:00 99 09/10/17 23:00 103 09/10/17 22:55 85 09/10/17 22:50 85 09/10/17 22:45 87 09/10/17 22:40 89 09/10/17 22:35 84 09/10/17 22:30 82 09/10/17 22:25 82 09/10/17 22:20 84 09/10/17 22:15 91 09/10/17 22:10 87 09/10/17 22:05 87 09/10/17 22:00 88 09/10/17 21:55 85 09/10/17 21:50 88 09/10/17 21:45 88 09/10/17 21:40 94 09/10/17 21:35 92 09/10/17 21:30 89 09/10/17 21:25 89 09/10/17 21:20 90 Objective Pelvic Exam: Cervix: Midposition Dilatation: 8-9 cm Effacement: 100 Station: 0 Presentation: V Membranes: SROM @ 0142 Uterine Contractions: Every 5-6 min FHT's: Category: 1 Baseline: 140 Reactive: Y Variability: moderate Decels: N Pt started active labor?: Yes Medical induction of labor?: Yes Medical induction start date: Sep 10, 2017 Medical induction start time: 16:38 Artificial rupture of membrane: No (SROM @ 0142 on 09/11) Assessment/Plan Problem List: (1) 41 weeks gestation of ICD Codes: Z3A.41 - 41 weeks gestation of Status: Acute Plan: Patient in active labor, cervical change noted. Recheck at 5:30am SROM @ [address] Continue IAP with Ancef S/p cytotec 25 mcg x2 Started pitocin titrated per protocol, 07/17/29 currently at 4 Continue routine care Yuliana Breen MD Sep 11, 2017 05:18
--- NOTE | 2017-09-11 06:25 | PD.LABORPN ---
Subjective Subjective Chart reviewed, pt discussed with labor nurse. Pt is complete, will start pushing at 6:30am. Cat 1 tracing, reassuring. Epidural, Pitocin running. Expectant mgmt Objective Vital Signs Vital Signs Date Time Temp Pulse Resp B/P (MAP) Pulse Ox O2 Delivery O2 Flow Rate FiO2 09/11/17 06:20 103 09/11/17 06:16 110 118/74 (89) 09/11/17 06:15 109 09/11/17 06:10 111 09/11/17 06:05 109 09/11/17 06:01 106 138/79 (98) 09/11/17 06:00 112 09/11/17 05:55 105 09/11/17 05:51 97.8 15 09/11/17 05:50 111 09/11/17 05:46 114 129/76 (93) 09/11/17 05:45 107 09/11/17 05:40 113 09/11/17 05:35 118 09/11/17 05:31 102 127/82 (97) 09/11/17 05:30 100 09/11/17 05:25 100 09/11/17 05:20 103 09/11/17 05:16 113 116/79 (91) 09/11/17 05:15 115 09/11/17 05:10 118 09/11/17 05:05 118 09/11/17 05:01 110 119/76 (90) 09/11/17 05:00 110 09/11/17 04:55 118 09/11/17 04:50 109 09/11/17 04:46 114 100/70 (80) 09/11/17 04:45 111 09/11/17 04:40 108 09/11/17 04:35 111 09/11/17 04:31 107 110/70 (83) 09/11/17 04:30 106 09/11/17 04:25 99 09/11/17 04:20 92 09/11/17 04:15 84 09/11/17 04:10 88 09/11/17 04:05 85 09/11/17 04:01 99 124/50 (74) 09/11/17 04:00 14 09/11/17 04:00 90 09/11/17 04:00 97.9 09/11/17 03:55 86 09/11/17 03:50 87 09/11/17 03:46 84 116/64 (81) 09/11/17 03:45 103 09/11/17 03:40 82 09/11/17 03:35 83 09/11/17 03:31 91 122/71 (88) 09/11/17 03:30 89 09/11/17 03:25 82 09/11/17 03:20 83 09/11/17 03:16 82 125/67 (86) 09/11/17 03:15 85 09/11/17 03:10 86 09/11/17 03:05 84 09/11/17 03:01 87 130/75 (93) 09/11/17 03:00 90 09/11/17 02:55 88 09/11/17 02:50 92 09/11/17 02:46 84 118/69 (85) 09/11/17 02:45 86 09/11/17 02:40 86 09/11/17 02:35 85 09/11/17 02:31 76 09/11/17 02:30 84 09/11/17 02:25 80 09/11/17 02:20 80 09/11/17 02:16 80 126/76 (93) 09/11/17 02:15 84 09/11/17 02:10 81 09/11/17 02:05 80 09/11/17 02:01 81 121/52 (75) 09/11/17 02:00 97.6 15 09/11/17 02:00 82 09/11/17 01:55 82 09/11/17 01:50 85 09/11/17 01:46 78 121/59 (79) 09/11/17 01:45 85 09/11/17 01:40 83 09/11/17 01:35 88 09/11/17 01:31 82 113/62 (79) 09/11/17 01:30 89 09/11/17 01:25 80 09/11/17 01:20 82 09/11/17 01:16 79 118/69 (85) 09/11/17 01:15 84 09/11/17 01:10 84 09/11/17 01:05 90 09/11/17 01:01 78 115/59 (77) 09/11/17 01:00 85 09/11/17 00:55 84 09/11/17 00:50 82 09/11/17 00:46 92 115/68 (84) 09/11/17 00:45 93 09/11/17 00:40 97 09/11/17 00:35 92 09/11/17 00:31 84 125/72 (89) 09/11/17 00:30 98 09/11/17 00:25 91 09/11/17 00:20 88 09/11/17 00:16 90 127/67 (87) 09/11/17 00:15 91 09/11/17 00:10 89 09/11/17 00:05 92 09/11/17 00:01 92 124/73 (90) 09/11/17 00:00 98.0 09/11/17 00:00 90 09/11/17 00:00 18 09/10/17 23:55 104 09/10/17 23:50 99 09/10/17 23:50 79 09/10/17 23:50 79 09/10/17 23:46 89 118/47 (70) 09/10/17 23:45 78 09/10/17 23:45 78 09/10/17 23:45 99 09/10/17 23:40 83 09/10/17 23:40 82 09/10/17 23:40 99 09/10/17 23:35 90 09/10/17 23:35 94 09/10/17 23:35 99 09/10/17 23:31 88 116/69 (85) 09/10/17 23:30 88 09/10/17 23:30 99 09/10/17 23:30 87 09/10/17 23:25 88 09/10/17 23:25 99 09/10/17 23:25 89 09/10/17 23:21 89 117/65 (82) 09/10/17 23:20 95 09/10/17 23:20 99 09/10/17 23:20 94 09/10/17 23:16 91 120/73 (89) 09/10/17 23:15 95 09/10/17 23:11 88 125/69 (87) 09/10/17 23:10 91 09/10/17 23:10 92 09/10/17 23:10 100 09/10/17 23:06 93 09/10/17 23:06 138/84 (102) 09/10/17 23:05 100 09/10/17 23:05 94 09/10/17 23:05 92 09/10/17 23:03 91 142/83 (102) 09/10/17 23:01 85 146/110 (122) 09/10/17 23:00 107 09/10/17 23:00 99 09/10/17 23:00 103 09/10/17 22:55 85 09/10/17 22:50 85 09/10/17 22:45 87 09/10/17 22:40 89 09/10/17 22:35 84 09/10/17 22:30 82 09/10/17 22:25 82 Objective Pelvic Exam: Cervix: Midposition Dilatation: 10 cm Effacement: 100 Station: 0 Presentation: V Membranes: SROM @ 0142 Uterine Contractions: Every 2-4 min FHT's: Category: 1 Baseline: 140 Reactive: Y Variability: moderate Decels: early decels Pt started active labor?: Yes Medical induction of labor?: Yes Medical induction start date: Sep 10, 2017 Medical induction start time: 16:38 Artificial rupture of membrane: No (SROM @ 0142 on 09/11) Assessment/Plan Problem List: (1) 41 weeks gestation of ICD Codes: Z3A.41 - 41 weeks gestation of Status: Acute Plan: Patient in active labor, complete, push at 630am SROM @ [address] Continue IAP with Ancef S/p cytotec 25 mcg x2 Started pitocin titrated per protocol, 07/17/29 currently at 4 Continue routine care Yuliana Breen MD Sep 11, 2017 06:25
[2017-09-11] MEDS ORDERED: LIDOCAINE HCL 1% PF 30 ML VIAL ONE (06:49)
[2017-09-11] MEDS ORDERED: BENZOCAINE 20% TOPICAL SPRAY 60 ML CAN TOPICAL PRN (07:30)
[2017-09-11] MEDS ORDERED: OXYTOCIN 30 UNITS-500ML PREMIX 500 ML IV SCH (07:30)
[2017-09-11] MEDS ORDERED: ONDANSETRON ODT 4 MG TAB PO PRN (07:30)
[2017-09-11] MEDS ORDERED: WITCH HAZEL 50%/GLYCERIN 12.5% 40 PAD JAR TOPICAL PRN (07:30)
[2017-09-11] MEDS ORDERED: ZOLPIDEM TARTRATE 5 MG TAB PO PRN (07:30)
[2017-09-11] MEDS ORDERED: SODIUM CHLORIDE 0.9% FLUSH 10 ML FLUSH IV FLUSH PRN (07:30)
[2017-09-11] MEDS ORDERED: ALUMINUM/MAGNESIUM/SIMETH 30 ML CUP PO PRN (07:30)
[2017-09-11] MEDS ORDERED: DOCUSATE SODIUM 50 MG/SENNA 8.6 MG TAB PO PRN (07:30)
--- NOTE | 2017-09-11 07:34 | PD.OB.DELI ---
Weeks gestation: 41 Pt started active labor?: Yes Medical induction of labor?: Yes Medical induction start date: Sep 10, 2017 Medical induction start time: 16:38 Artificial rupture of membrane: No (SROM @ 0142 on 09/11) Anesthesia: Epidural Episiotomy: None Vaginal Delivery: Spontaneous Presentation: Occiput anterior Nuchal Cord: x2 (loose) Delayed cord clamping (45 sec): Yes Infant: Female Delivery date: Sep 11, 2017 Delivery time: 06:56 One Minute : 8 Five Minute : 8 Placenta: Spontaneous delivery Laceration: 2 deg Repair: Chromic running Estimated blood loss: 200 Additional Information Patient is a 21YO female who delivered by Normal spontaneous vaginal delivery, of live female intact, position KOBE over intact perineum withepidural anesthesia. Nuchal cord x 2 delivered through as they were loose. Cord released after delivery of infant. Light meconium noted at delivery of body. Suction of at perineum and infant handed over to nursery staff. Spontaneous delivery of placenta with 3-vessel cord within 5 minutes. Laceration of 2nd degree vaginal mucoas repaired using chromic running suture. Estimated blood loss 200cc. Infant and mother doing well. Attending Dr. Pfeiffer was presented for entire delivery. Yuliana Breen MD Sep 11, 2017 07:34
[2017-09-11] MEDS ORDERED: MEASLES, MUMPS, RUBELLA VACCINE 0.5 ML VIAL SQ ONE (16:00)
[2017-09-11] MEDS ORDERED: DIPHTH/TETANUS/ACEL PERTUSSIS (BOOSTER) 0.5 ML VIAL/PFS IM ONE (16:00)
[2017-09-11] MEDS: IBUPROFEN 800 MG TAB PO PRN (16:48)
[2017-09-11] MEDS: ACETAMINOPHEN 325 MG TAB PO PRN (16:49)
[2017-09-12] MEDS: IBUPROFEN 800 MG TAB PO PRN ×3 (01:10→18:08)
[2017-09-12] MEDS: ACETAMINOPHEN 325 MG TAB PO PRN ×3 (01:10→18:09)
--- NOTE | 2017-09-12 07:33 | HHI.OB ---
Subjective Post Day: 1 Remarks day # 1. AFVSS overnight. Decreased lochia. Denies dysuria. No breast tenderness. She is feeding the baby via breast. Baby transferred to NICU yesterday. Appetite good. No nausea or vomiting. Patient has not yet had a bowel movement. Ambulating well. Denies calf pain or shortness of breath. Otherwise, she is doing well this morning and has no other concerns. Objective Vitals/I&O Vital Signs Date Time Temp Pulse Resp B/P (MAP) Pulse Ox O2 Delivery O2 Flow Rate FiO2 09/11/17 20:32 97.7 101 18 101/50 (67) 09/11/17 10:00 97.5 116 18 114/60 (78) 09/11/17 09:40 0 09/11/17 09:31 107 101/62 (75) 09/11/17 09:16 115 103/50 (67) 09/11/17 09:01 118 117/80 (92) 09/11/17 08:46 123 117/75 (89) 09/11/17 08:45 0 09/11/17 08:31 108 116/52 (73) 09/11/17 08:16 119 116/67 (83) 09/11/17 08:01 125 108/74 (85) 09/11/17 07:57 0 09/11/17 07:46 118 116/60 (78) 09/11/17 07:45 98.4 18 09/11/17 07:31 127 126/90 (102) 09/11/17 07:30 0 Objective Remarks GENERAL: Well-nourished, well-developed patient. CARDIOVASCULAR: Regular rate and rhythm without murmurs, gallops, or rubs. RESPIRATORY: Breath sounds equal bilaterally. No accessory muscle use. ABDOMEN/GI: Abdomen soft, non-tender. FUNDUS: Firm, non-tender at umbilicus. GENITOURINARY: Light to moderate bleeding. EXTREMITIES: No cyanosis or edema, non-tender, without signs of DVT. Medications and IVs Current Medications Medications (Trade) Dose Ordered Sig/Thea Route Start Time Stop Time Status Last Admin Sodium Chloride 500 ml @ 1,000 mls/hr ONCE PRN IV 09/10/17 12:00 09/12/17 11:59 Sodium Chloride 1,000 ml @ 100 mls/hr Q10H PRN IV 09/10/17 12:13 (Xylocaine 1% Inj (50 ml)) 0.1 ml UNSCH X1 PRN I-DERMAL 09/10/17 12:00 09/13/17 11:59 (Zofran Inj) 4 mg Q6H PRN IV PUSH 09/10/17 12:00 (Xylocaine 1% Inj (50 ml)) 10 ml UNSCH X1 PRN INFIL 09/10/17 12:00 09/12/17 11:59 (Benadryl Inj) 25 mg Q6H PRN IV 09/10/17 13:30 Oxytocin 500 ml @ 2 mls/hr TITRATE PRN IV 09/10/17 15:45 Future Hold 09/11/17 02:32 (Cytotec) 25 mcg Q4H PO 09/10/17 17:15 09/10/17 21:18 Fentanyl/ Bupivacaine HCl 100 ml @ 0 mls/hr TITRATE EPIDURAL 09/10/17 23:45 09/11/17 04:41 (NS Flush) 2 ml BID IV FLUSH 09/11/17 09:00 09/11/17 01:10 (NS Flush) 2 ml UNSCH PRN IV FLUSH 09/11/17 07:30 (Tylenol) 650 mg Q4H PRN PO 09/11/17 07:30 09/12/17 01:10 (Motrin) 800 mg Q8H PRN PO 09/11/17 07:30 09/12/17 01:10 (Americaine 20% Top Spr) 1 spray Q4H PRN TOPICAL 09/11/17 07:30 09/12/17 01:10 (Tucks Pads) 1 applic QID PRN TOPICAL 09/11/17 07:30 09/12/17 01:10 (Jackie-Colace) 2 tab Q12H PRN PO 09/11/17 07:30 (Ambien) 5 mg HS PRN PO 09/11/17 07:30 (Mag-Al Plus Susp Liq) 15 ml Q8H PRN PO 09/11/17 07:30 (Zofran Odt) 4 mg Q6H PRN PO 09/11/17 07:30 (Flu (Quadrivalent) Vaccine Inj) 0.5 ml ONCE ONCE IM 09/12/17 10:00 09/12/17 10:01 Assessment/Plan Problem List: (1) 41 weeks gestation of ICD Codes: Z3A.41 - 41 weeks gestation of Status: Acute Assessment and Plan 21 y/o female who is PPD# 1 s/p . Baby in NICU. -Continue routine care. -Acetaminophen and Motrin PRN pain. -Encouraged OOB. Advised pelvic rest for 6 wks. -Re: ctrl, she would like OCPs, ordered Minipills and counseled pt. -Anticipate discharge tomorrow. 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
[2017-09-12] MEDS ORDERED: ACET325T15 PO (07:50)
[2017-09-12] MEDS ORDERED: IBUP1TAB7 PO (07:50)
--- NOTE | 2017-09-12 07:50 | HHI.DCPOC ---
Discharge Care Plan Diagnosis: (1) 41 weeks gestation of Report Symptoms to Your Doctor -Temperature above 100.5 degrees -Redness, of incision or excessive or foul smelling drainage -Unusual pain or calf pain -Increased vaginal bleeding -Painful or difficulty urinating -Feelings of extreme sadness or anxiety after 2 weeks Goals to Promote Your Health * To prevent worsening of your condition and complications * To maintain your health at the optimal level Directions to Meet Your Goals Take your medications as prescribed Follow your dietary instruction Follow activity as directed Ensure plenty of rest for recovery Drink fluids for hydration Keep your appointments as scheduled Take your immunizations and boosters as scheduled If your symptoms worsen call your PCP, if no PCP go to Urgent Care Center or Emergency Room Smoking is Dangerous to Your Health. Avoid second hand smoke Call the 24-hour crisis hotline for domestic abuse at Yuliana Breen MD Sep 12, 2017 07:50
[2017-09-12 08:00] VITALS: BP 111/69; PULSE 84; RESP 18; RESP 8; TEMP 97.6
[2017-09-12] MEDS ORDERED: NORE0.354 PO (08:04)
[2017-09-12] MEDS ORDERED: INFLUENZA VIRUS VACCINE (QUADRIVALENT) 0.5 ML SYR IM ONE (10:00)
[2017-09-12 21:07] VITALS: BP 129/80; PULSE 85; RESP 19; TEMP 98.1
[2017-09-13 08:50] VITALS: BP 133/85; PULSE 90; RESP 17; TEMP 98.3
[2017-09-13] MEDS: IBUPROFEN 800 MG TAB PO PRN (09:01)
--- NOTE | 2017-09-13 09:28 | HHI.OB ---
Subjective Post Day: 2 Remarks Pt seen and examined this morning. day # 2 AFVSS overnight. Decreased lochia. Denies dysuria. No breast tenderness. She is feeding the baby via breast. Appetite good. No nausea or vomiting. Patient endorses having 2 bowel movements and continues to pass bowel gas. Ambulating well. Denies calf pain or shortness of breath. Otherwise, she is doing well this morning and has no other concerns. Objective Vitals/I&O Vital Signs Date Time Temp Pulse Resp B/P (MAP) Pulse Ox O2 Delivery O2 Flow Rate FiO2 09/13/17 08:50 98.3 90 17 133/85 (101) 09/12/17 21:07 98.1 85 19 129/80 (96) Objective Remarks GENERAL: Well-nourished, well-developed patient. CARDIOVASCULAR: Regular rate and rhythm without murmurs, gallops, or rubs. RESPIRATORY: Breath sounds equal bilaterally. No accessory muscle use. ABDOMEN/GI: Abdomen soft, non-tender. FUNDUS: Firm, non-tender at umbilicus. GENITOURINARY: Light to moderate bleeding. EXTREMITIES: No cyanosis or edema, non-tender, without signs of DVT. Medications and IVs Current Medications Medications (Trade) Dose Ordered Sig/Thea Route Start Time Stop Time Status Last Admin Sodium Chloride 1,000 ml @ 100 mls/hr Q10H PRN IV 09/10/17 12:13 (Xylocaine 1% Inj (50 ml)) 0.1 ml UNSCH X1 PRN I-DERMAL 09/10/17 12:00 09/13/17 11:59 (Zofran Inj) 4 mg Q6H PRN IV PUSH 09/10/17 12:00 (Benadryl Inj) 25 mg Q6H PRN IV 09/10/17 13:30 Oxytocin 500 ml @ 2 mls/hr TITRATE PRN IV 09/10/17 15:45 Future Hold 09/11/17 02:32 (Cytotec) 25 mcg Q4H PO 09/10/17 17:15 09/10/17 21:18 Fentanyl/ Bupivacaine HCl 100 ml @ 0 mls/hr TITRATE EPIDURAL 09/10/17 23:45 09/11/17 04:41 (NS Flush) 2 ml BID IV FLUSH 09/11/17 09:00 09/11/17 01:10 (NS Flush) 2 ml UNSCH PRN IV FLUSH 09/11/17 07:30 (Tylenol) 650 mg Q4H PRN PO 09/11/17 07:30 09/12/17 18:09 (Motrin) 800 mg Q8H PRN PO 09/11/17 07:30 09/13/17 09:01 (Americaine 20% Top Spr) 1 spray Q4H PRN TOPICAL 09/11/17 07:30 09/12/17 01:10 (Tucks Pads) 1 applic QID PRN TOPICAL 09/11/17 07:30 09/12/17 01:10 (Jackie-Colace) 2 tab Q12H PRN PO 09/11/17 07:30 (Ambien) 5 mg HS PRN PO 09/11/17 07:30 (Mag-Al Plus Susp Liq) 15 ml Q8H PRN PO 09/11/17 07:30 (Zofran Odt) 4 mg Q6H PRN PO 09/11/17 07:30 Assessment/Plan Problem List: (1) 41 weeks gestation of ICD Codes: Z3A.41 - 41 weeks gestation of Status: Acute (2) (spontaneous vaginal delivery) ICD Codes: O80 - Encounter for full-term uncomplicated delivery Assessment and Plan 21 y/o female who is PPD# 2 s/p . Baby in NICU. -Continue routine care. -Acetaminophen and Motrin PRN pain. -Encouraged OOB. Advised pelvic rest for 6 wks. -Re: ctrl, she would like OCPs, ordered Minipills and counseled pt. -Anticipate discharge tomorrow today. -GBS positive -HSV positive - may discontinue acyclovir, no new symptoms reported -Rhogam transfused 09/12/17 WDW Harry Calderon MD R2 Sep 13, 2017 09:28
== END 2017-09-13 13:10 | disposition home or self-care (01) | DRG 775 ==
LOC: HOBED 11:12 → H2EA 12:23 → H1EA 09-11 09:58
PROVIDERS: ADMIT Obstetrics & Gynecology; ATTEND Obstetrics & Gynecology
PROC: 10E0XZZ Delivery of Products of Conception, External Approach (ICD-10-PCS; principal; 2017-09-11)
PROC: 0KQM0ZZ Repair Perineum Muscle, Open Approach (ICD-10-PCS; 2017-09-11)
PROC: 00HU33Z Insertion of Infusion Device into Spinal Canal, Percutaneous Approach (ICD-10-PCS; 2017-09-11)
PROC: 3E0R3BZ Introduction of Anesthetic Agent into Spinal Canal, Percutaneous Approach (ICD-10-PCS; 2017-09-11)
DX: O48.0 Post-term pregnancy (principal); O99.12 Other diseases of the blood and blood-forming organs and certain disorders involving the immune mechanism complicating childbirth; O70.1 Second degree perineal laceration during delivery; J45.909 Unspecified asthma, uncomplicated; O77.0 Labor and delivery complicated by meconium in amniotic fluid; D72.829 Elevated white blood cell count, unspecified; O99.52 Diseases of the respiratory system complicating childbirth; Z3A.41 41 weeks gestation of pregnancy; O99.824 Streptococcus B carrier state complicating childbirth; O69.81X0 Labor and delivery complicated by cord around neck, without compression, not applicable or unspecified; Z37.0 Single live birth; Z23 Encounter for immunization
CPT/HCPCS: 59025; 76816; 76818; 80307; 81001; 84112; 85025; 85461; 86850; 86900; 86901; 90384; 90686; 99283; G0481; J0690; J2590; J2790; J3010; J7120; Q2038